=== PATIENT | female | born 1960 | race Caucasian/White ===

== ENCOUNTER 2017-06-05 15:51 | Inpatient (IN) | payer BC ==
[2017-06-05] MEDS ORDERED: ALBUTEROL SULFATE 0.083% NEB 2.5 MG/3 ML AMPUL NEB ONE (16:12)
--- NOTE | 2017-06-05 16:14 | ER Document Report ---
ED General - General Chief Complaint: Breathing Difficulty Stated Complaint: DIFFICULTY BREATHING Time Seen by Provider: 06/05/17 16:08 Notes: 57-year-old lady with COPD still smoking presents with gradual onset shortness of breath today with wheezing. She denies fever chills but is coughing. She used her inhalers this morning. She denies leg swelling or hemoptysis. She had a recent skin surgery on her left shoulder 3 days ago but denies chest pain pleuritic or otherwise. She was given steroids and [address] TRAVEL OUTSIDE OF THE [place] IN LAST 30 DAYS: No - Related Data Allergies/Adverse Reactions: levofloxacin [From [employer]] Adverse Reaction (Verified 06/24/15 11:57) redness to face Past Medical History - Social History Smoking Status: Current Every Day Smoker Smoking Education Provided: Yes - The patient ED visit today was directly related to their abuse of tobacco. Family History: Reviewed & Not Pertinent - Past Medical History Cardiac Medical History: Reports: Hx Congestive Heart Failure, Hx Coronary Artery Disease, Hx Hypertension Pulmonary Medical History: Reports: Hx Asthma, Hx COPD Neurological Medical History: Reports: Hx Cerebrovascular Accident GI Medical History: Reports: Hx Gastroesophageal Reflux Disease Musculoskeltal Medical History: Reports Hx Fibromyalgia Psychiatric Medical History: Reports: Hx Depression Past Surgical History: Reports: Hx Adenoidectomy, Hx Hysterectomy, Hx Tonsillectomy, Hx Vascular Surgery - Right-sided carotid endarterectomy - Immunizations Hx Pneumococcal Vaccination: 03/30/11 Review of Systems - Review of Systems Notes: REVIEW OF SYSTEMS GEN: Denies fever, chills, weight loss ENT: Denies sore throat, nasal discharge, ear pain EYES: Denies blurry vision, eye pain, discharge CV: Denies chest pain, palpitations, edema RESP: Wheezing coughing and shortness of breath GI: Denies abdominal pain, nausea, vomiting, diarrhea MSK: Denies joint pain/swelling, edema, SKIN: Denies rash, skin lesions LYMPH: Denies swollen glands/lymph nodes NEURO: Denies headache, focal weakness or numbness, dizziness PSYCH: Denies depression, suicidal or homicidal ideation PHYSICAL EXAMINATION General: Mild distress, well-nourished Head: Atraumatic, normocephalic ENT: Mouth normal, oropharynx moist, no exudates or tonsillar enlargement Eyes: Conjunctiva normal, pupils equal, lids normal Neck: No JVD, supple, no guarding CVS: Normal rate, regular rhythm, no murmurs Resp: Respiratory distress saturations in the 80s. Bilateral air movement with symmetric expiratory and expiratory wheezing. GI: Nondistended, soft, no tenderness to palpation, no rebound or guarding Ext: No deformities, no edema, normal range of motion in upper and lower ext Back: No CVA or midline TTP Skin: No rash, warm Lymphatic: No lymphadeopathy noted Neuro: Awake, alert. Face symmetric. GCS 15. Course - Re-evaluation Re-evalutation: 06/05/17 16:14 Patient presents with moderate to severe COPD exacerbation still wheezing hypoxic after therapy. Not quite at the level of BiPAP but needs continuous nebulizer. Doubt flu doubt pneumonia. Chest x-ray will be done to rule out pneumo mediastinum/pneumothorax the patient will be admitted. 06/05/17 16:38 Reexamined. More comfortable on nebulizer treatment. X-ray does not show pneumothorax or pneumonia. Discussed with Dr. Wray for admission. Critical Care Note - Critical Care Note Total time excluding time spent on procedures (mins): 31 Comments: The above patient is critically ill. Not including procedures, but including direct re-evaluations, speaking with patient and/or consultants, interpreting results, and documenting, I spent the total amount of minute listed listed above on critical care time Discharge - Discharge Clinical Impression: COPD with exacerbation Condition: Fair Disposition: ADMITTED INPATIENT Admitting Provider: Hospitalist Unit Admitted: Telemetry
--- NOTE | 2017-06-05 16:41 | RADIOLOGY REPORT (SQ) ---
EXAM DESCRIPTION: CHEST SINGLE VIEW COMPLETED DATE/TIME: 06/05/2017 4:21 pm REASON FOR STUDY: r/o PNA., copd pt with SOB COMPARISON: 06/24/2015. EXAM PARAMETERS: NUMBER OF VIEWS: One view. TECHNIQUE: Single frontal radiographic view of the chest acquired. RADIATION DOSE: NA LIMITATIONS: None. FINDINGS: LUNGS AND PLEURA: No opacities, masses or pneumothorax. No pleural effusion. MEDIASTINUM AND HILAR STRUCTURES: No masses. Contour normal. HEART AND VASCULAR STRUCTURES: Heart normal in size. Normal vasculature. BONES: No acute findings. HARDWARE: None in the chest. OTHER: No other significant finding. IMPRESSION: NO ACUTE RADIOGRAPHIC FINDING IN THE CHEST. TECHNICAL DOCUMENTATION: JOB ID: [id number] [employer]- All Rights Reserved Reading location - IP/workstation name: [email or web address]
[2017-06-05] MEDS ORDERED: ONDANSETRON HCL INJ/PF 4 MG/2 ML SDV IV PRN (17:07)
[2017-06-05] MEDS ORDERED: ACETAMINOPHEN 325 MG TABLET PO PRN (17:07)
--- NOTE | 2017-06-05 17:27 | PDOC H&P ---
History of Present Illness Admission Date/PCP: 06/05/17 16:54 Patient complains of: Shortness of breath History of Present Illness: KEELEY GALEANO is a 57 year old female presents to the hospital with complaint of shortness of breath for 2 days. Patient states this morning her breathing worsened. Patient states she does have productive cough which is clear. Patient reports that a few days ago she had a skin biopsy done and was placed on Keflex twice a day. Patient states she started antibiotics yesterday. Patient reports that she still is actively smoking. Past Medical History Cardiac Medical History: Reports: Congestive Heart Failure, Coronary Artery Disease, Hypertension Pulmonary Medical History: Reports: Asthma, Chronic Obstructive Pulmonary Disease (COPD) GI Medical History: Reports: Gastroesophageal Reflux Disease Musculoskeltal Medical History: Reports: Fibromyalgia Psychiatric Medical History: Reports: Depression Past Surgical History Past Surgical History: Reports: Adenoidectomy, Hysterectomy, Tonsillectomy, Vascular Surgery - Right-sided carotid endarterectomy Social History Smoking Status: Current Every Day Smoker Frequency of Alcohol Use: Rare Hx Recreational Drug Use: No Drugs: Marijuana Hx Prescription Drug Abuse: No - Advance Directive Resuscitation Status: Full Code Family History Family History: Reviewed & Not Pertinent Parental Family History Reviewed: Yes Children Family History Reviewed: Yes Sibling(s) Family History Reviewed.: Yes Medication/Allergy Home Medications: Alprazolam [Xanax] 1 mg PO TID 10/24/14 Atorvastatin Calcium [Lipitor] 40 mg PO QHS 10/24/14 Methocarbamol [Robaxin 750 mg Tablet] 750 mg PO QHS 10/24/14 Oxycodone HCl 15 mg PO QIDP PRN 10/24/14 Pregabalin [Lyrica] 150 mg PO BID 10/24/14 Trazodone HCl [Desyrel] 300 mg PO QHS 10/24/14 Zolpidem Tartrate [Ambien] 10 mg PO QHS 10/24/14 Albuterol Sulfate [Ventolin 0.083% Neb 2.5 mg/3 mL Ampul] 2.5 mg NEB RTQ4HP PRN #30 vial.neb 10/26/14 Fluticasone/Salmeterol [Advair 250-50 Diskus 28 dose] 1 inh IH Q12H #1 inhaler 10/26/14 Furosemide [Lasix 20 mg Tablet] 20 mg PO QAM PRN #30 tablet 10/26/14 Albuterol Sulfate [Ventolin Hfa] 2 puff IH Q4HP PRN 06/11/15 Citalopram Hydrobromide [Celexa] 20 mg PO DAILY 06/11/15 Allergies/Adverse Reactions: levofloxacin [From Levaquin] Adverse Reaction (Verified 06/24/15 11:57) redness to face Review of Systems Constitutional: PRESENT: fatigue, weakness Eyes: ABSENT: visual disturbances Ears: ABSENT: hearing changes Cardiovascular: ABSENT: chest pain, dyspnea on exertion, edema, orthropnea, palpitations Respiratory: PRESENT: cough, dyspnea, sputum Gastrointestinal: ABSENT: abdominal pain, constipation, diarrhea, hematemesis, hematochezia, nausea, vomiting Genitourinary: ABSENT: dysuria, hematuria Musculoskeletal: ABSENT: joint swelling Integumentary: ABSENT: rash, wounds Neurological: ABSENT: abnormal gait, abnormal speech, confusion, dizziness, focal weakness, syncope Psychiatric: ABSENT: anxiety, depression, homidical ideation, suicidal ideation Endocrine: ABSENT: cold intolerance, heat intolerance, polydipsia, polyuria Hematologic/Lymphatic: ABSENT: easy bleeding, easy bruising Physical Exam Vital Signs: Temp Pulse Resp BP Pulse Ox 20 06/05/17 16:00 General appearance: PRESENT: mild distress, well-developed, well-nourished Head exam: PRESENT: atraumatic, normocephalic Eye exam: PRESENT: conjunctiva pink, EOMI. ABSENT: scleral icterus Ear exam: PRESENT: normal external ear exam Mouth exam: PRESENT: moist, tongue midline Neck exam: ABSENT: carotid bruit, JVD, lymphadenopathy, thyromegaly Respiratory exam: PRESENT: accessory muscle use, decreased breath sounds, prolonged expiratory phas, wheezes Cardiovascular exam: PRESENT: RRR. ABSENT: diastolic murmur, rubs, systolic murmur Pulses: PRESENT: normal dorsalis pedis pul Vascular exam: PRESENT: normal capillary refill GI/Abdominal exam: PRESENT: normal bowel sounds, soft. ABSENT: distended, guarding, mass, organolmegaly, rebound, tenderness Rectal exam: PRESENT: deferred Extremities exam: PRESENT: full ROM. ABSENT: calf tenderness, clubbing, pedal edema Musculoskeletal exam: PRESENT: full ROM Neurological exam: PRESENT: alert, awake, oriented to person, oriented to place , oriented to time, oriented to situation, CN II-XII grossly intact. ABSENT: motor sensory deficit Psychiatric exam: PRESENT: appropriate affect, normal mood. ABSENT: homicidal ideation, suicidal ideation Skin exam: PRESENT: dry, intact, warm. ABSENT: cyanosis, rash Results Impressions: Chest X-Ray 06/05/17 16:08 IMPRESSION: NO ACUTE RADIOGRAPHIC FINDING IN THE CHEST. Assessment & Plan - Diagnosis (1) Acute respiratory failure with hypoxia Is this a current diagnosis for this admission?: Yes Plan: Secondary to COPD exacerbation: We will place patient on breathing treatments every 4 hours, steroids, and Augmentin. (2) COPD with exacerbation Is this a current diagnosis for this admission?: Yes Plan: We will continue patient on steroids, antibiotics, and DuoNeb (3) Hyperlipidemia Is this a current diagnosis for this admission?: Yes Plan: Will check lipid profile. (4) Diastolic CHF Qualifiers: Heart failure chronicity: chronic Qualified Code(s): I50.32 - Chronic diastolic (congestive) heart failure Is this a current diagnosis for this admission?: No Plan: We will continue to monitor patient closely. Will not place patient on IV fluids. (5) DVT prophylaxis Is this a current diagnosis for this admission?: Yes Plan: SCDs - Time Time Spent: 30 to 50 Minutes
[2017-06-05] MEDS ORDERED: NICOTINE 21 MG/24 HR PATCH.TD24 TD ONE (18:00)
[2017-06-05] MEDS ORDERED: AMOXICILLIN TR/POT CLAVULANATE 500-125 MG TAB PO ONE (18:00)
[2017-06-05 18:17] LABS: APPEARANCE,URINE CLEAR; BILIRUBIN,URINE NEGATIVE (NEGATIVE); COLOR,URINE STRAW; GLUCOSE, URINE NEGATIVE (NEGATIVE); KETONES,URINE NEGATIVE (NEGATIVE); LEUKOCYTE ESTERASE,URINE NEGATIVE (NEGATIVE); NITRITE,URINE NEGATIVE (NEGATIVE); PROTEIN,URINE NEGATIVE (NEGATIVE); URINE SPECIFIC GRAVITY 1.006; UROBILINOGEN,URINE NEGATIVE mg/dL (<2.0)
[2017-06-05 18:41] LABS: HEMATOCRIT 40.6 % (36.0-47.0); HEMOGLOBIN 13.6 g/dL (12.0-15.5); MEAN CORPUSCULAR HEMOGLOBIN 29.7 pg (27.0-33.4); MEAN CORPUSCULAR HGB CONC 33.4 g/dL (32.0-36.0); MEAN CORPUSCULAR VOLUME 89 fl (80-97); PLATELET COUNT 177 10^3/uL (150-450); RED BLOOD COUNT 4.57 10^6/uL (3.72-5.28); RED CELL DISTRIBUTION WIDTH 13.4 % (11.5-14.0)
[2017-06-05 19:05] LABS: ANION GAP 8 (5-19); BLOOD UREA NITROGEN 11 mg/dL (7-20); CARBON DIOXIDE 28 mmol/L (22-30); CHLORIDE 101 mmol/L (98-107); GLUCOSE 128 mg/dL (75-110); POTASSIUM 4.5 mmol/L (3.6-5.0); SODIUM 137.3 mmol/L (137-145)
[2017-06-05] MEDS: IPRATROPIUM/ALBUTEROL 0.5-2.5 MG/3 ML AMPUL NEB SCH ×2 (20:04→23:44)
--- NOTE | 2017-06-05 21:08 | EKG REPORT ---
SEVERITY:- ABNORMAL ECG - SINUS TACHYCARDIA LEFT ATRIAL ABNORMALITY : Confirmed by: Isabela Stein 05-Jun-2017 21:07:39
[2017-06-05] MEDS: AMOXICILLIN TR/POT CLAVULANATE 500-125 MG TAB PO SCH (22:09)
[2017-06-05] MEDS: METHYLPREDNISOLONE INJ 125 MG/2 ML SDV IV SCH (22:09)
[2017-06-05 23:00] LABS: ARTERIAL BLOOD BASE EXCESS 2.7 mmol/L; ARTERIAL BLOOD FIO2 3L; ARTERIAL BLOOD H2CO3 1.38 mmol/L (1.05-1.35); ARTERIAL BLOOD O2 SATURATION 90.1 % (94-98); ARTERIAL BLOOD PO2 58.1 mmHg (80-100); ARTERIAL BLOOD TOTAL CO2 29.5 mmol/L (21-25)
[2017-06-06] MEDS ORDERED: METHOCARBAMOL 750 MG TABLET PO ONE (01:45)
[2017-06-06] MEDS ORDERED: PREGABALIN 75 MG CAPSULE PO ONE (01:45)
[2017-06-06] MEDS ORDERED: ALPRAZOLAM 0.5 MG TABLET PO ONE ×2 (01:45→20:15)
[2017-06-06] MEDS ORDERED: ATORVASTATIN CALCIUM 40 MG TABLET PO ONE (01:45)
[2017-06-06] MEDS: OXYCODONE HCL IR 5 MG TABLET PO PRN ×3 (01:48→21:28)
[2017-06-06] MEDS ORDERED: TRAZODONE HCL 50 MG TABLET PO ONE (02:00)
[2017-06-06] MEDS: IPRATROPIUM/ALBUTEROL 0.5-2.5 MG/3 ML AMPUL NEB SCH ×5 (03:46→19:48)
[2017-06-06 05:15] LABS: ABSOLUTE LYMPHOCYTES (AUTO) 0.6 10^3/uL (0.5-4.7); ABSOLUTE MONOCYTES (AUTO) 0.1 10^3/uL (0.1-1.4); ABSOLUTE NEUT (AUTO) 4.7 10^3/uL (1.7-8.2); BASOPHILS % (AUTO) 0.3 % (0-2); HEMATOCRIT 38.2 % (36.0-47.0); HEMOGLOBIN 12.6 g/dL (12.0-15.5); LYMPHOCYTES % (AUTO) 10.4 % (13-45); MEAN CORPUSCULAR HEMOGLOBIN 29.5 pg (27.0-33.4); MEAN CORPUSCULAR VOLUME 89 fl (80-97); MONOCYTES % (AUTO) 2.6 % (3-13); PLATELET COUNT 178 10^3/uL (150-450); RED BLOOD COUNT 4.27 10^6/uL (3.72-5.28); RED CELL DISTRIBUTION WIDTH 13.8 % (11.5-14.0); SEGMENTED NEUTROPHILS % (AUTO) 86.7 % (42-78); TOTAL CELLS COUNTED % (AUTO) 100 %; WHITE BLOOD COUNT 5.4 10^3/uL (4.0-10.5)
[2017-06-06] MEDS: AMOXICILLIN TR/POT CLAVULANATE 500-125 MG TAB PO SCH ×3 (05:38→21:20)
[2017-06-06] MEDS: LANSOPRAZOLE 30 MG TAB.RAP.DR PO SCH (05:38)
[2017-06-06] MEDS: METHYLPREDNISOLONE INJ 125 MG/2 ML SDV IV SCH ×3 (05:38→22:58)
[2017-06-06 05:46] LABS: ALANINE AMINOTRANSFERASE 36 U/L (9-52); ALBUMIN 4.3 g/dL (3.5-5.0); ALKALINE PHOSPHATASE 81 U/L (38-126); ANION GAP 10 (5-19); ASPARTATE AMINO TRANSFERASE 36 U/L (14-36); BILIRUBIN,DIRECT 0.2 mg/dL (0.0-0.4); BILIRUBIN,TOTAL 0.2 mg/dL (0.2-1.3); BLOOD UREA NITROGEN 15 mg/dL (7-20); CALCIUM 9.7 mg/dL (8.4-10.2); CARBON DIOXIDE 28 mmol/L (22-30); CHLORIDE 98 mmol/L (98-107); GLUCOSE 150 mg/dL (75-110); POTASSIUM 4.9 mmol/L (3.6-5.0); SODIUM 136.2 mmol/L (137-145); TOTAL PROTEIN 6.6 g/dL (6.3-8.2)
[2017-06-06] MEDS: ALPRAZOLAM 0.5 MG TABLET PO SCH ×2 (07:32→22:59)
[2017-06-06] MEDS: NICOTINE 21 MG/24 HR PATCH.TD24 TD SCH (10:01)
[2017-06-06] MEDS: CITALOPRAM HYDROBROMIDE 20 MG TABLET PO SCH (10:01)
[2017-06-06] MEDS: METHOCARBAMOL 750 MG TABLET PO SCH ×2 (10:01→21:28)
[2017-06-06] MEDS: PREGABALIN 75 MG CAPSULE PO SCH ×2 (10:02→21:20)
--- NOTE | 2017-06-06 15:22 | PDOC PROGRESS REPORT ---
Subjective Progress Note for:: 06/06/17 Subjective:: Pt seen earlier this morning. Pt states that she is feeling better. Pt states that she is not having is hard time breathing today. Reason For Visit: COPD W EXACERBATION Physical Exam Vital Signs: Temp Pulse Resp BP Pulse Ox 98.3 F 105 H 20 121/64 87 L 06/06/17 13:06 06/06/17 14:00 06/06/17 13:06 06/06/17 13:06 06/06/17 13:06 Intake & Output 06/05/17 06/06/17 06/07/17 06:59 06:59 07:59 Intake Total 450 337 Output Total 300 300 Balance 150 37 Weight 77.2 kg General appearance: PRESENT: no acute distress, well-developed, well-nourished Head exam: PRESENT: atraumatic, normocephalic Eye exam: PRESENT: conjunctiva pink, EOMI. ABSENT: scleral icterus Ear exam: PRESENT: normal external ear exam Mouth exam: PRESENT: moist, tongue midline Neck exam: ABSENT: carotid bruit, JVD, lymphadenopathy, thyromegaly Respiratory exam: PRESENT: accessory muscle use, decreased breath sounds, prolonged expiratory phas, wheezes Cardiovascular exam: PRESENT: RRR. ABSENT: diastolic murmur, rubs, systolic murmur Pulses: PRESENT: normal dorsalis pedis pul Vascular exam: PRESENT: normal capillary refill GI/Abdominal exam: PRESENT: normal bowel sounds, soft. ABSENT: distended, guarding, mass, organolmegaly, rebound, tenderness Rectal exam: PRESENT: deferred Extremities exam: PRESENT: full ROM. ABSENT: calf tenderness, clubbing, pedal edema Musculoskeletal exam: PRESENT: full ROM Neurological exam: PRESENT: alert, awake, oriented to person, oriented to place , oriented to time, oriented to situation, CN II-XII grossly intact. ABSENT: motor sensory deficit Psychiatric exam: PRESENT: appropriate affect, normal mood. ABSENT: homicidal ideation, suicidal ideation Skin exam: PRESENT: dry, intact, warm. ABSENT: cyanosis, rash Results Laboratory Results: 06/06/17 03:44 06/06/17 03:44 06/05/17 06/05/17 06/05/17 17:40 17:40 18:27 WBC 7.0 RBC 4.57 Hgb 13.6 Hct 40.6 MCV 89 MCH 29.7 MCHC 33.4 RDW 13.4 Plt Count 177 Seg Neutrophils % Lymphocytes % Monocytes % Eosinophils % Basophils % Absolute Neutrophils Absolute Lymphocytes Absolute Monocytes Absolute Eosinophils Absolute Basophils Carbonic Acid 1.38 H HCO3/H2CO3 Ratio 20:1 ABG pH 7.40 ABG pCO2 46.0 H ABG pO2 58.1 L ABG HCO3 28.0 H ABG O2 Saturation 90.1 L ABG Base Excess 2.7 FiO2 3L Sodium Potassium Chloride Carbon Dioxide Anion Gap BUN Creatinine Est GFR ( Amer) Est GFR (Non-Af Amer) Glucose Calcium Magnesium Total Bilirubin AST ALT Alkaline Phosphatase Total Protein Albumin Urine Color STRAW Urine Appearance CLEAR Urine pH 6.0 Ur Specific [place] 1.006 Urine Protein NEGATIVE Urine Glucose (UA) NEGATIVE Urine Ketones NEGATIVE Urine Blood SMALL H Urine Nitrite NEGATIVE Ur Leukocyte Esterase NEGATIVE Urine WBC (Auto) 0 Urine RBC (Auto) 1 06/05/17 06/06/17 06/06/17 18:27 03:44 03:44 WBC 5.4 RBC 4.27 Hgb 12.6 Hct 38.2 MCV 89 MCH 29.5 MCHC 33.0 RDW 13.8 Plt Count 178 Seg Neutrophils % 86.7 H Lymphocytes % 10.4 L Monocytes % 2.6 L Eosinophils % 0.0 Basophils % 0.3 Absolute Neutrophils 4.7 Absolute Lymphocytes 0.6 Absolute Monocytes 0.1 Absolute Eosinophils 0.0 Absolute Basophils 0.0 Carbonic Acid HCO3/H2CO3 Ratio ABG pH ABG pCO2 ABG pO2 ABG HCO3 ABG O2 Saturation ABG Base Excess FiO2 Sodium 137.3 136.2 L Potassium 4.5 4.9 Chloride 101 98 Carbon Dioxide 28 28 Anion Gap 8 10 BUN 11 15 Creatinine 0.62 0.56 Est GFR ( Amer) > 60 > 60 Est GFR (Non-Af Amer) > 60 > 60 Glucose 128 H 150 H Calcium 10.0 9.7 Magnesium 2.2 Total Bilirubin 0.2 AST 36 ALT 36 Alkaline Phosphatase 81 Total Protein 6.6 Albumin 4.3 Urine Color Urine Appearance Urine pH Ur Specific [place] Urine Protein Urine Glucose (UA) Urine Ketones Urine Blood Urine Nitrite Ur Leukocyte Esterase Urine WBC (Auto) Urine RBC (Auto) 06/06/17 02:00 Sputum Gram Stain - Final 06/06/17 02:00 Sputum Sputum Culture - Final Impressions: Chest X-Ray 06/05/17 16:08 IMPRESSION: NO ACUTE RADIOGRAPHIC FINDING IN THE CHEST. Assessment & Plan - Diagnosis (1) Acute respiratory failure with hypoxia Is this a current diagnosis for this admission?: Yes Plan: Secondary to COPD exacerbation: We will continue breathing treatments, steroids , and antibiotics. Patient is also using BiPAP. Since BiPAP settings were adjusted later in the morning and will order for ABG now. (2) COPD with exacerbation Is this a current diagnosis for this admission?: Yes Plan: We will continue patient on steroids, antibiotics, and DuoNeb. Will continue BIPAP. Will check ABG. (3) Hyperlipidemia Is this a current diagnosis for this admission?: Yes Plan: Will continue statin. (4) Diastolic CHF Qualifiers: Heart failure chronicity: chronic Qualified Code(s): I50.32 - Chronic diastolic (congestive) heart failure Is this a current diagnosis for this admission?: No Plan: Euvolemic: We will continue to monitor patient closely. Will not place patient on IV fluids. (5) DVT prophylaxis Is this a current diagnosis for this admission?: Yes Plan: SCDs - Time Time Spent with patient: 15-24 minutes
[2017-06-06 16:29] LABS: ARTERIAL BLOOD BASE EXCESS 4.1 mmol/L; ARTERIAL BLOOD FIO2 6L; ARTERIAL BLOOD H2CO3 1.33 mmol/L (1.05-1.35); ARTERIAL BLOOD HCO3 28.9 mmol/L (20-26); ARTERIAL BLOOD O2 SATURATION 97.5 % (94-98); ARTERIAL BLOOD PCO2 44.2 mmHg (35-45); ARTERIAL BLOOD PH 7.43 (7.35-7.45); ARTERIAL BLOOD TOTAL CO2 30.3 mmol/L (21-25)
[2017-06-06] MEDS: MAGNESIUM SULFATE 1 GM/D5W 100 ML IV SCH ×2 (20:10→21:19)
[2017-06-06] MEDS: TRAZODONE HCL 50 MG TABLET PO SCH (21:19)
[2017-06-06] MEDS: ATORVASTATIN CALCIUM 40 MG TABLET PO SCH (21:20)
[2017-06-07] MEDS: IPRATROPIUM/ALBUTEROL 0.5-2.5 MG/3 ML AMPUL NEB SCH ×6 (00:03→20:35)
[2017-06-07] MEDS: OXYCODONE HCL IR 5 MG TABLET PO PRN ×3 (04:16→19:50)
[2017-06-07 04:51] LABS: HEMATOCRIT 38.4 % (36.0-47.0); HEMOGLOBIN 12.9 g/dL (12.0-15.5); MEAN CORPUSCULAR HEMOGLOBIN 29.9 pg (27.0-33.4); MEAN CORPUSCULAR HGB CONC 33.7 g/dL (32.0-36.0); MEAN CORPUSCULAR VOLUME 89 fl (80-97); PLATELET COUNT 186 10^3/uL (150-450); RED BLOOD COUNT 4.34 10^6/uL (3.72-5.28)
[2017-06-07 05:11] LABS: ALANINE AMINOTRANSFERASE 46 U/L (9-52); ALBUMIN 4.2 g/dL (3.5-5.0); ALKALINE PHOSPHATASE 73 U/L (38-126); ANION GAP 7 (5-19); ASPARTATE AMINO TRANSFERASE 53 U/L (14-36); BILIRUBIN,DIRECT 0.3 mg/dL (0.0-0.4); BILIRUBIN,TOTAL 0.3 mg/dL (0.2-1.3); BLOOD UREA NITROGEN 17 mg/dL (7-20); CALCIUM 9.3 mg/dL (8.4-10.2); CARBON DIOXIDE 30 mmol/L (22-30); CHLORIDE 101 mmol/L (98-107); GLUCOSE 126 mg/dL (75-110); POTASSIUM 5.1 mmol/L (3.6-5.0); SODIUM 137.8 mmol/L (137-145); TOTAL PROTEIN 6.9 g/dL (6.3-8.2)
[2017-06-07 05:22] LABS: ABSOLUTE LYMPHOCYTES# (MANUAL) 0.8 10^3/uL (0.5-4.7); ABSOLUTE NEUTROPHILS# (MANUAL) 17.3 10^3/uL (1.7-8.2); BASOPHILS % (MANUAL) 0 % (0-2); EOSINOPHILS % (MANUAL) 0 % (0-6); LYMPHOCYTES % (MANUAL) 4 % (13-45); MONOCYTES % (MANUAL) 5 % (3-13); SEGMENTED NEUTROPHILS % (MAN) 91 % (42-78); TOTAL CELLS COUNTED 100
[2017-06-07 05:23] LABS: PLATELET COMMENT ADEQUATE; RBC MORPHOLOGY COMMENT NORMO-CYTIC/CHROMIC
[2017-06-07] MEDS: METHYLPREDNISOLONE INJ 125 MG/2 ML SDV IV SCH ×3 (05:23→22:25)
[2017-06-07] MEDS: LANSOPRAZOLE 30 MG TAB.RAP.DR PO SCH (05:23)
[2017-06-07] MEDS: AMOXICILLIN TR/POT CLAVULANATE 500-125 MG TAB PO SCH ×3 (05:23→22:25)
[2017-06-07] MEDS: ALPRAZOLAM 0.5 MG TABLET PO SCH ×2 (08:18→22:25)
[2017-06-07] MEDS: CITALOPRAM HYDROBROMIDE 20 MG TABLET PO SCH (10:51)
[2017-06-07] MEDS: PREGABALIN 75 MG CAPSULE PO SCH ×2 (10:51→22:25)
[2017-06-07] MEDS: NICOTINE 21 MG/24 HR PATCH.TD24 TD SCH (10:51)
[2017-06-07] MEDS: METHOCARBAMOL 750 MG TABLET PO SCH ×2 (10:51→22:26)
[2017-06-07 11:00] LABS: ARTERIAL BLOOD H2CO3 1.49 mmol/L (1.05-1.35); ARTERIAL BLOOD O2 SATURATION 98.4 % (94-98); ARTERIAL BLOOD PCO2 49.5 mmHg (35-45); ARTERIAL BLOOD PH 7.37 (7.35-7.45); ARTERIAL BLOOD PO2 125.9 mmHg (80-100); ARTERIAL BLOOD TOTAL CO2 29.6 mmol/L (21-25)
[2017-06-07 11:05] LABS: ARTERIAL BLOOD FIO2 50%
--- NOTE | 2017-06-07 15:17 | PDOC PROGRESS REPORT ---
Subjective Progress Note for:: 06/07/17 Subjective:: Seen earlier this morning complaining that she was having difficulty breathing. Patient stated that she wanted more benzos which will help her breathe better. Explained to patient that given her benzos or morphine while experiencing severe respiratory distress would most likely make her condition worse. Patient states that she feels as though she needs something more to help her stay calm when she is feeling this short of breath. Later on revisit patient in room with BiPAP in place and she was removed I am asked to talk on the cell phone with her family member. Reason For Visit: COPD W EXACERBATION Physical Exam Vital Signs: Temp Pulse Resp BP Pulse Ox 97.4 F 89 21 H 120/67 99 06/07/17 12:00 06/07/17 14:00 06/07/17 12:00 06/07/17 12:00 06/07/17 12:00 Intake & Output 06/06/17 06/07/17 06/08/17 05:59 06:59 06:59 Intake Total Output Total Balance Weight General appearance: PRESENT: no acute distress, well-developed, well-nourished Head exam: PRESENT: atraumatic, normocephalic Eye exam: PRESENT: conjunctiva pink, EOMI. ABSENT: scleral icterus Ear exam: PRESENT: normal external ear exam Mouth exam: PRESENT: moist, tongue midline Neck exam: ABSENT: carotid bruit, JVD, lymphadenopathy, thyromegaly Respiratory exam: PRESENT: accessory muscle use, prolonged expiratory phas, wheezes Cardiovascular exam: PRESENT: RRR. ABSENT: diastolic murmur, rubs, systolic murmur Pulses: PRESENT: normal dorsalis pedis pul Vascular exam: PRESENT: normal capillary refill GI/Abdominal exam: PRESENT: normal bowel sounds, soft. ABSENT: distended, guarding, mass, organolmegaly, rebound, tenderness Rectal exam: PRESENT: deferred Extremities exam: PRESENT: full ROM. ABSENT: calf tenderness, clubbing, pedal edema Musculoskeletal exam: PRESENT: full ROM Neurological exam: PRESENT: alert, awake, oriented to person, oriented to place , oriented to time, oriented to situation, CN II-XII grossly intact. ABSENT: motor sensory deficit Psychiatric exam: PRESENT: agitated, normal mood. ABSENT: homicidal ideation, suicidal ideation Skin exam: PRESENT: dry, intact, warm. ABSENT: cyanosis, rash Results Laboratory Results: 06/07/17 03:30 06/07/17 03:30 06/06/17 06/07/17 06/07/17 14:15 03:30 03:30 WBC 19.0 H D RBC 4.34 Hgb 12.9 Hct 38.4 MCV 89 MCH 29.9 MCHC 33.7 RDW 14.0 Plt Count 186 Seg Neutrophils % Not Reportable Lymphocytes % Not Reportable Monocytes % Not Reportable Eosinophils % Not Reportable Basophils % Not Reportable Absolute Neutrophils Not Reportable Absolute Lymphocytes Not Reportable Absolute Monocytes Not Reportable Absolute Eosinophils Not Reportable Absolute Basophils Not Reportable Carbonic Acid 1.33 HCO3/H2CO3 Ratio 21:1 ABG pH 7.43 ABG pCO2 44.2 ABG pO2 96.0 ABG HCO3 28.9 H ABG O2 Saturation 97.5 ABG Base Excess 4.1 FiO2 6L Sodium 137.8 Potassium 5.1 H Chloride 101 Carbon Dioxide 30 Anion Gap 7 BUN 17 Creatinine 0.56 Est GFR ( Amer) > 60 Est GFR (Non-Af Amer) > 60 Glucose 126 H Calcium 9.3 Magnesium 2.8 H Total Bilirubin 0.3 AST 53 H ALT 46 Alkaline Phosphatase 73 Total Protein 6.9 Albumin 4.2 06/07/17 10:30 WBC RBC Hgb Hct MCV MCH MCHC RDW Plt Count Seg Neutrophils % Lymphocytes % Monocytes % Eosinophils % Basophils % Absolute Neutrophils Absolute Lymphocytes Absolute Monocytes Absolute Eosinophils Absolute Basophils Carbonic Acid 1.49 H HCO3/H2CO3 Ratio 18:1 ABG pH 7.37 ABG pCO2 49.5 H ABG pO2 125.9 H ABG HCO3 28.0 H ABG O2 Saturation 98.4 H ABG Base Excess 2.0 FiO2 50% Sodium Potassium Chloride Carbon Dioxide Anion Gap BUN Creatinine Est GFR ( Amer) Est GFR (Non-Af Amer) Glucose Calcium Magnesium Total Bilirubin AST ALT Alkaline Phosphatase Total Protein Albumin 06/06/17 02:00 Sputum Gram Stain - Final 06/06/17 02:00 Sputum Sputum Culture - Final Impressions: Chest X-Ray 06/05/17 16:08 IMPRESSION: NO ACUTE RADIOGRAPHIC FINDING IN THE CHEST. Assessment & Plan - Diagnosis (1) Acute respiratory failure with hypoxia Is this a current diagnosis for this admission?: Yes Plan: Secondary to COPD exacerbation: We will continue breathing treatments, steroids , and antibiotics. Patient is using BiPAP. Patient's settings were adjusted yesterday. Will decrease FI02 to 30%. (2) COPD with exacerbation Is this a current diagnosis for this admission?: Yes Plan: We will continue patient on steroids, antibiotics, and DuoNeb. Will continue BIPAP. Patient encouraged to discontinue tobacco abuse was discharged home from hospital. (3) Hyperlipidemia Is this a current diagnosis for this admission?: Yes Plan: Will continue statin. (4) Diastolic CHF Qualifiers: Heart failure chronicity: chronic Qualified Code(s): I50.32 - Chronic diastolic (congestive) heart failure Is this a current diagnosis for this admission?: No Plan: Euvolemic: We will continue to monitor patient closely. Will not place patient on IV fluids. (5) DVT prophylaxis Is this a current diagnosis for this admission?: Yes Plan: SCDs - Time Time Spent with patient: 15-24 minutes
[2017-06-07] MEDS: BENZONATATE 100 MG CAPSULE PO PRN (19:50)
[2017-06-07] MEDS: TRAZODONE HCL 50 MG TABLET PO SCH (22:25)
[2017-06-07] MEDS: ATORVASTATIN CALCIUM 40 MG TABLET PO SCH (22:25)
[2017-06-08] MEDS: IPRATROPIUM/ALBUTEROL 0.5-2.5 MG/3 ML AMPUL NEB SCH ×7 (00:14→23:52)
[2017-06-08 04:27] LABS: ABSOLUTE LYMPHOCYTES (AUTO) 1.5 10^3/uL (0.5-4.7); ABSOLUTE MONOCYTES (AUTO) 1.6 10^3/uL (0.1-1.4); ABSOLUTE NEUT (AUTO) 13.4 10^3/uL (1.7-8.2); HEMATOCRIT 38.6 % (36.0-47.0); HEMOGLOBIN 12.9 g/dL (12.0-15.5); MEAN CORPUSCULAR HEMOGLOBIN 29.8 pg (27.0-33.4); MEAN CORPUSCULAR HGB CONC 33.3 g/dL (32.0-36.0); MEAN CORPUSCULAR VOLUME 89 fl (80-97); MONOCYTES % (AUTO) 9.9 % (3-13); PLATELET COUNT 193 10^3/uL (150-450); RED BLOOD COUNT 4.32 10^6/uL (3.72-5.28); SEGMENTED NEUTROPHILS % (AUTO) 81.1 % (42-78); TOTAL CELLS COUNTED % (AUTO) 100 %; WHITE BLOOD COUNT 16.6 10^3/uL (4.0-10.5)
[2017-06-08] MEDS: BENZONATATE 100 MG CAPSULE PO PRN (04:31)
[2017-06-08] MEDS: OXYCODONE HCL IR 5 MG TABLET PO PRN ×3 (04:32→16:18)
[2017-06-08 04:59] LABS: ALANINE AMINOTRANSFERASE 48 U/L (9-52); ALBUMIN 3.8 g/dL (3.5-5.0); ALKALINE PHOSPHATASE 69 U/L (38-126); ANION GAP 6 (5-19); ASPARTATE AMINO TRANSFERASE 61 U/L (14-36); BILIRUBIN,DIRECT 0.3 mg/dL (0.0-0.4); BILIRUBIN,TOTAL 0.3 mg/dL (0.2-1.3); BLOOD UREA NITROGEN 17 mg/dL (7-20); CALCIUM 9.3 mg/dL (8.4-10.2); CARBON DIOXIDE 31 mmol/L (22-30); CHLORIDE 101 mmol/L (98-107); GLUCOSE 90 mg/dL (75-110); SODIUM 138.3 mmol/L (137-145); TOTAL PROTEIN 6.8 g/dL (6.3-8.2)
[2017-06-08] MEDS: AMOXICILLIN TR/POT CLAVULANATE 500-125 MG TAB PO SCH ×3 (05:21→21:31)
[2017-06-08] MEDS: LANSOPRAZOLE 30 MG TAB.RAP.DR PO SCH (05:22)
[2017-06-08] MEDS: METHYLPREDNISOLONE INJ 125 MG/2 ML SDV IV SCH ×3 (05:22→21:32)
[2017-06-08] MEDS: ALPRAZOLAM 0.5 MG TABLET PO SCH ×2 (07:50→21:31)
[2017-06-08] MEDS: CITALOPRAM HYDROBROMIDE 20 MG TABLET PO SCH (10:13)
[2017-06-08] MEDS: METHOCARBAMOL 750 MG TABLET PO SCH ×2 (10:14→21:31)
[2017-06-08] MEDS: PREGABALIN 75 MG CAPSULE PO SCH ×2 (10:14→21:31)
[2017-06-08] MEDS: NICOTINE 21 MG/24 HR PATCH.TD24 TD SCH (10:18)
--- NOTE | 2017-06-08 18:04 | PDOC PROGRESS REPORT ---
Subjective Progress Note for:: 06/08/17 Subjective:: Pt states that her anxiety is severe. Pt states that she sometimes takes an additional ativan at home but not normally. Nursing states that pt has been using her BIPAP. Reason For Visit: COPD W EXACERBATION Physical Exam Vital Signs: Temp Pulse Resp BP Pulse Ox 97.6 F 91 16 144/85 H 98 06/08/17 15:45 06/08/17 15:47 06/08/17 15:47 06/08/17 15:45 06/08/17 15:47 Intake & Output 06/07/17 06/08/17 06/09/17 06:59 06:59 06:59 Intake Total 1767 Output Total 800 Balance 967 Weight 80.9 kg General appearance: PRESENT: no acute distress, well-developed, well-nourished Head exam: PRESENT: atraumatic, normocephalic Eye exam: PRESENT: conjunctiva pink, EOMI. ABSENT: scleral icterus Ear exam: PRESENT: normal external ear exam Mouth exam: PRESENT: moist, tongue midline Neck exam: ABSENT: carotid bruit, JVD, lymphadenopathy, thyromegaly Respiratory exam: PRESENT: accessory muscle use, decreased breath sounds, prolonged expiratory phas, wheezes. ABSENT: rales, rhonchi Cardiovascular exam: PRESENT: RRR. ABSENT: diastolic murmur, rubs, systolic murmur Pulses: PRESENT: normal dorsalis pedis pul Vascular exam: PRESENT: normal capillary refill GI/Abdominal exam: PRESENT: normal bowel sounds, soft. ABSENT: distended, guarding, mass, organolmegaly, rebound, tenderness Rectal exam: PRESENT: deferred Extremities exam: PRESENT: full ROM. ABSENT: calf tenderness, clubbing, pedal edema Neurological exam: PRESENT: alert, awake, oriented to person, oriented to place , oriented to time, oriented to situation, CN II-XII grossly intact. ABSENT: motor sensory deficit Psychiatric exam: PRESENT: appropriate affect, normal mood. ABSENT: homicidal ideation, suicidal ideation Skin exam: PRESENT: dry, intact, warm. ABSENT: cyanosis, rash Results Laboratory Results: 06/08/17 03:33 06/08/17 03:33 06/08/17 06/08/17 03:33 03:33 WBC 16.6 H RBC 4.32 Hgb 12.9 Hct 38.6 MCV 89 MCH 29.8 MCHC 33.3 RDW 14.0 Plt Count 193 Seg Neutrophils % 81.1 H Lymphocytes % 9.0 L Monocytes % 9.9 Eosinophils % 0.0 Basophils % 0.0 Absolute Neutrophils 13.4 H Absolute Lymphocytes 1.5 Absolute Monocytes 1.6 H Absolute Eosinophils 0.0 Absolute Basophils 0.0 Sodium 138.3 Potassium 5.0 Chloride 101 Carbon Dioxide 31 H Anion Gap 6 BUN 17 Creatinine 0.59 Est GFR ( Amer) > 60 Est GFR (Non-Af Amer) > 60 Glucose 90 Calcium 9.3 Magnesium 2.4 H Total Bilirubin 0.3 AST 61 H ALT 48 Alkaline Phosphatase 69 Total Protein 6.8 Albumin 3.8 Impressions: Chest X-Ray 06/05/17 16:08 IMPRESSION: NO ACUTE RADIOGRAPHIC FINDING IN THE CHEST. Assessment & Plan - Diagnosis (1) Acute respiratory failure with hypoxia Is this a current diagnosis for this admission?: Yes Plan: Secondary to COPD exacerbation: We will continue breathing treatments, steroids , and antibiotics. Patient is using BiPAP. Will obtain CTA of chest to evaluate for PE. (2) COPD with exacerbation Is this a current diagnosis for this admission?: Yes Plan: We will continue patient on steroids, antibiotics, and DuoNeb. Will continue BIPAP. Will check CTA of chest to evaluate for PE. (3) Hyperlipidemia Is this a current diagnosis for this admission?: Yes Plan: Will continue statin. (4) Diastolic CHF Qualifiers: Heart failure chronicity: chronic Qualified Code(s): I50.32 - Chronic diastolic (congestive) heart failure Is this a current diagnosis for this admission?: No Plan: Euvolemic: We will continue to monitor patient closely. Will not place patient on IV fluids. (5) Anxiety Is this a current diagnosis for this admission?: Yes Plan: Pt's ativan has been adjusted. (6) Leukocytosis Is this a current diagnosis for this admission?: Yes Plan: Secondary to Steroids: Will continue to monitor. (7) DVT prophylaxis Is this a current diagnosis for this admission?: Yes Plan: SCDs - Time Time Spent with patient: 15-24 minutes
[2017-06-08] MEDS ORDERED: LIDOCAINE 1% INJ-PF (10 MG/ML) 30 ML SDV ONE (20:15)
[2017-06-08] MEDS ORDERED: LIDOCAINE 0.5% INJ-PF (5 MG/ML) 50 ML SDV ONE (20:15)
[2017-06-08] MEDS: LORAZEPAM 0.5 MG TABLET PO PRN (20:38)
--- NOTE | 2017-06-08 21:04 | RADIOLOGY REPORT (SQ) ---
EXAM DESCRIPTION: CHEST SINGLE VIEW COMPLETED DATE/TIME: 06/08/2017 8:47 pm REASON FOR STUDY: central line placement COMPARISON: 06/05/2017 EXAM PARAMETERS: NUMBER OF VIEWS: One view. TECHNIQUE: Single frontal radiographic view of the chest acquired. RADIATION DOSE: NA LIMITATIONS: None. FINDINGS: LUNGS AND PLEURA: There is a 20% pneumothorax seen in the right apex. There is no pulmona ry infiltrate or pleural effusion. MEDIASTINUM AND HILAR STRUCTURES: No masses. Contour normal. HEART AND VASCULAR STRUCTURES: Heart normal in size. Normal vasculature. BONES: No acute findings. HARDWARE: A right subclavian catheter has its tip in the superior vena cava. OTHER: No other significant finding. IMPRESSION: 20% right pneumothorax after catheter placement. TECHNICAL DOCUMENTATION: JOB ID: [id number] [employer]- All Rights Reserved Reading location - IP/workstation name: [email or web address]
[2017-06-08] MEDS: ATORVASTATIN CALCIUM 40 MG TABLET PO SCH (21:31)
[2017-06-08] MEDS: TRAZODONE HCL 50 MG TABLET PO SCH (21:31)
--- NOTE | 2017-06-08 21:33 | OPERATIVE REPORT E ---
Operative Report NAME: KEELEY GALEANO : 1960 AGE: 57Y DATE OF SURGERY: 06/08/2017 ROOM: 527 PREOPERATIVE DIAGNOSIS: PATIENT NEEDED CENTRAL LINE FOR CT ANGIO. POSTOPERATIVE DIAGNOSIS: PATIENT NEEDED CENTRAL LINE FOR CT ANGIO. OPERATION: Placement of right subclavian vein triple-lumen catheter. SURGEON: YVETTE GARCIA M.D. ANESTHESIA: Local. TISSUE REMOVED OR ALTERED: PROCEDURE: Patient was placed in Trendelenburg position and the right chest and neck were then prepped and draped in the usual sterile fashion. The right infraclavicular area was then injected with lidocaine. Next, the right subclavian vein was then punctured and guidewire passed through the needle into the direction of the superior vena cava. Needle was removed and the puncture site dilated. A triple-lumen catheter inserted through the guidewire up to a distance of about 16 cm. All the 3 ports aspirated blood easily and instilled saline easily. The catheter was anchored to the skin with 3-0 silk and a Biopatch placed at the insertion site, and a transparent dressing placed over the Biopatch and catheter. Chest x-ray will be obtained for placement. Patient tolerated procedure well. DICTATING PHYSICIAN: YVETTE GARCIA M.D. [id number] [facility]#: [id number] ID: [id number] JOB#: [id number] ACCT: [id number] cc:YVETTE GARCIA M.D. >
[2017-06-09 01:51] LABS: ARTERIAL BLOOD BASE EXCESS 2.5 mmol/L; ARTERIAL BLOOD FIO2 100%; ARTERIAL BLOOD H2CO3 3.89 mmol/L (1.05-1.35); ARTERIAL BLOOD HCO3 37.3 mmol/L (20-26); ARTERIAL BLOOD O2 SATURATION 89.2 % (94-98); ARTERIAL BLOOD PO2 80.5 mmHg (80-100); ARTERIAL BLOOD TOTAL CO2 41.3 mmol/L (21-25)
--- NOTE | 2017-06-09 01:51 | RADIOLOGY REPORT (SQ) ---
EXAM DESCRIPTION: CHEST SINGLE VIEW CLINICAL HISTORY: 57 years Female, Increase in difficulty breathing COMPARISON: 3.12.18 NUMBER OF VIEWS/TECHNIQUE: 1/AP LIMITATIONS: None. FINDINGS: Increased moderate right pneumothorax with apical pleural separation measuring 4 cm compared with 1.9 cm one day prior, estimated 37%. Normal cardiac silhouette. Right subclavian central line tip at the SVC. IMPRESSION: Increased moderate (greater than 37%) right pneumothorax.
[2017-06-09 01:52] LABS: ARTERIAL BLOOD PH 7.08 (7.35-7.45)
[2017-06-09 01:53] LABS: ARTERIAL BLOOD PCO2 129.3 mmHg (35-45)
[2017-06-09] MEDS ORDERED: LIDOCAINE 1% INJ-PF (10 MG/ML) 30 ML SDV ONE (01:58)
[2017-06-09] MEDS ORDERED: LIDOCAINE 0.5% INJ-PF (5 MG/ML) 50 ML SDV ONE (01:58)
[2017-06-09] MEDS ORDERED: IPRATROPIUM/ALBUTEROL 0.5-2.5 MG/3 ML AMPUL NEB ONE (02:00)
[2017-06-09] MEDS ORDERED: FENTANYL CITRATE INJ/PF 100 MCG/2 ML AMPUL ONE (02:38)
[2017-06-09] MEDS ORDERED: FENTANYL CITRATE INJ/PF 50 MCG/1 ML 50 ML SDV IV ONE (03:00)
[2017-06-09] MEDS: OXYCODONE HCL IR 5 MG TABLET PO PRN ×4 (03:17→23:46)
--- NOTE | 2017-06-09 03:19 | RADIOLOGY REPORT (SQ) ---
EXAM DESCRIPTION: CHEST SINGLE VIEW CLINICAL HISTORY: 57 years Female, chest tube COMPARISON: 3.13.18 NUMBER OF VIEWS/TECHNIQUE: 1/AP LIMITATIONS: None. FINDINGS: Minimal right pneumothorax with pleural separation measuring 0.8 cm. Right chest tube. Normal cardiac silhouette. Right subclavian central line tip at the cavoatrial junction. IMPRESSION: Improved minimal right pneumothorax. Right chest tube.
[2017-06-09] MEDS: IPRATROPIUM/ALBUTEROL 0.5-2.5 MG/3 ML AMPUL NEB SCH ×5 (03:55→20:44)
[2017-06-09] MEDS: LANSOPRAZOLE 30 MG TAB.RAP.DR PO SCH (05:10)
[2017-06-09] MEDS: AMOXICILLIN TR/POT CLAVULANATE 500-125 MG TAB PO SCH ×3 (05:10→23:23)
[2017-06-09] MEDS: METHYLPREDNISOLONE INJ 125 MG/2 ML SDV IV SCH ×3 (05:11→23:30)
[2017-06-09 05:43] LABS: HEMATOCRIT 38.7 % (36.0-47.0); HEMOGLOBIN 12.5 g/dL (12.0-15.5); MEAN CORPUSCULAR HEMOGLOBIN 29.4 pg (27.0-33.4); MEAN CORPUSCULAR HGB CONC 32.2 g/dL (32.0-36.0); MEAN CORPUSCULAR VOLUME 91 fl (80-97); PLATELET COUNT 187 10^3/uL (150-450); RED BLOOD COUNT 4.24 10^6/uL (3.72-5.28); RED CELL DISTRIBUTION WIDTH 14.1 % (11.5-14.0); WHITE BLOOD COUNT 15.1 10^3/uL (4.0-10.5)
[2017-06-09 05:55] LABS: ALANINE AMINOTRANSFERASE 52 U/L (9-52); ALBUMIN 3.8 g/dL (3.5-5.0); ALKALINE PHOSPHATASE 67 U/L (38-126); ANION GAP 6 (5-19); ASPARTATE AMINO TRANSFERASE 65 U/L (14-36); BILIRUBIN,DIRECT 0.1 mg/dL (0.0-0.4); BILIRUBIN,TOTAL 0.1 mg/dL (0.2-1.3); BLOOD UREA NITROGEN 20 mg/dL (7-20); CALCIUM 9.2 mg/dL (8.4-10.2); CARBON DIOXIDE 33 mmol/L (22-30); CHLORIDE 99 mmol/L (98-107); GLUCOSE 118 mg/dL (75-110); POTASSIUM 5.3 mmol/L (3.6-5.0); SODIUM 137.6 mmol/L (137-145)
[2017-06-09 06:42] LABS: ABSOLUTE LYMPHOCYTES# (MANUAL) 4.1 10^3/uL (0.5-4.7); ABSOLUTE MONOCYTES # (MANUAL) 1.1 10^3/uL (0.1-1.4); BASOPHILS % (MANUAL) 0 % (0-2); EOSINOPHILS % (MANUAL) 0 % (0-6); LYMPHOCYTES % (MANUAL) 27 % (13-45); MONOCYTES % (MANUAL) 7 % (3-13); SEGMENTED NEUTROPHILS % (MAN) 66 % (42-78); TOTAL CELLS COUNTED 100
[2017-06-09 06:43] LABS: PLATELET COMMENT ADEQUATE; RBC MORPHOLOGY COMMENT NORMO-CYTIC/CHROMIC; TOXIC GRANULATION SLIGHT
--- NOTE | 2017-06-09 06:49 | OPERATIVE REPORT E ---
Operative Report NAME: KEELEY GALEANO : 1960 AGE: 57Y DATE OF SURGERY: 06/09/2017 ROOM: 303 PREOPERATIVE DIAGNOSIS: Traumatic right pneumothorax. POSTOPERATIVE DIAGNOSIS: Traumatic right pneumothorax. PROCEDURE: Placement of right chest tube. SURGEON: YVETTE GARCIA M.D. ANESTHESIA: Local. INDICATION: This is a 57-year-old female who just had a right subclavian vein triple-lumen catheter inserted around 5 p.m. Chest x-ray revealed about a 20% right pneumothorax. DESCRIPTION OF PROCEDURE: The patient was placed in the semi-erect position and the right chest just below the breast was then prepped and draped in the usual sterile fashion. Local anesthesia infiltrated just below the breast and a 2 cm incision made. Further placement of local anesthesia was made through the upper fifth rib and through the pleura using at least 20 mL of 0.5% Xylocaine. Next, the 5th intercostal space, was then bluntly opened with a hemostat and then a 24-[place] chest tube was then inserted up to about 20 cm. The chest tube was then anchored to the skin with 0 silk. Next, the chest tube, which has hemostat at the end, was then connected to a Pleur-evac and the hemostat then released with the patient dramatically feeling better. A sterile vaseline dressing placed around the chest tube. A chest x-ray was obtained, which showed right lung well expanded and the chest tube in fairly good position. It may be a little bit kinked towards the apex of the right lung. Chest tube then connected to suction to -20 cm water suction. The patient tolerated the procedure quite well. DICTATING PHYSICIAN: YVETTE GARCIA M.D. [id number] PHY#: [id number] ID: [id number] JOB#: [id number] ACCT: [id number] cc:YVETTE GARCIA M.D. > MTDFabien
[2017-06-09] MEDS: ALPRAZOLAM 0.5 MG TABLET PO SCH ×2 (07:51→23:29)
--- NOTE | 2017-06-09 08:37 | PDOC PROGRESS REPORT ---
Subjective Progress Note for:: 06/09/17 Subjective:: Patient was seen earlier this morning. Patient states that she is breathing okay this morning. Patient states that she is having pain from chest tube in place. Overnight central line was requested and during procedure patient developed the pneumo and surgery placed a chest tube. Patient this morning states that she is having pain and nursing states that they have given her pain medication. Prior to entering the room patient was sleeping awoke easily with stimulation. Reason For Visit: RIGHT PNEUMOTHORAX Physical Exam Vital Signs: Temp Pulse Resp BP Pulse Ox 99.0 F 118 H 24 H 150/88 H 96 06/09/17 07:27 06/09/17 07:27 06/09/17 07:27 06/09/17 07:27 06/09/17 07:27 Intake & Output 06/08/17 06/09/17 06/10/17 06:59 06:59 06:59 Intake Total 1767 1043 Output Total 800 Balance 967 1043 Weight 80.9 kg General appearance: PRESENT: no acute distress, well-developed, well-nourished Head exam: PRESENT: atraumatic, normocephalic Eye exam: PRESENT: conjunctiva pink, EOMI. ABSENT: scleral icterus Ear exam: PRESENT: normal external ear exam Mouth exam: PRESENT: moist, tongue midline Neck exam: ABSENT: carotid bruit, JVD, lymphadenopathy, thyromegaly Respiratory exam: PRESENT: other - Chest tube on right side in place, patient with diffuse wheezing heard more prominently on the left side, diminished breath sounds on right side, no accessory muscle use noted, patient able to speak in complete sentences. Cardiovascular exam: PRESENT: RRR. ABSENT: diastolic murmur, rubs, systolic murmur Pulses: PRESENT: normal dorsalis pedis pul Vascular exam: PRESENT: normal capillary refill GI/Abdominal exam: PRESENT: normal bowel sounds, soft. ABSENT: distended, guarding, mass, organolmegaly, rebound, tenderness Rectal exam: PRESENT: deferred Extremities exam: PRESENT: full ROM. ABSENT: calf tenderness, clubbing, pedal edema Musculoskeletal exam: PRESENT: full ROM Neurological exam: PRESENT: alert, awake, oriented to person, oriented to place , oriented to time, oriented to situation, CN II-XII grossly intact. ABSENT: motor sensory deficit Psychiatric exam: PRESENT: appropriate affect, normal mood. ABSENT: homicidal ideation, suicidal ideation Skin exam: PRESENT: dry, intact, warm. ABSENT: cyanosis, rash Results Laboratory Results: 06/09/17 05:10 06/09/17 05:10 06/09/17 06/09/17 06/09/17 01:40 05:10 05:10 WBC 15.1 H RBC 4.24 Hgb 12.5 Hct 38.7 MCV 91 MCH 29.4 MCHC 32.2 RDW 14.1 H Plt Count 187 Seg Neutrophils % Not Reportable Lymphocytes % Not Reportable Monocytes % Not Reportable Eosinophils % Not Reportable Basophils % Not Reportable Absolute Neutrophils Not Reportable Absolute Lymphocytes Not Reportable Absolute Monocytes Not Reportable Absolute Eosinophils Not Reportable Absolute Basophils Not Reportable Carbonic Acid 3.89 H HCO3/H2CO3 Ratio 9:1 ABG pH 7.08 L* ABG pCO2 129.3 H* ABG pO2 80.5 ABG HCO3 37.3 H ABG O2 Saturation 89.2 L ABG Base Excess 2.5 FiO2 100% Sodium 137.6 Potassium 5.3 H Chloride 99 Carbon Dioxide 33 H Anion Gap 6 BUN 20 Creatinine 0.71 Est GFR ( Amer) > 60 Est GFR (Non-Af Amer) > 60 Glucose 118 H Calcium 9.2 Total Bilirubin 0.1 L AST 65 H ALT 52 Alkaline Phosphatase 67 Total Protein 6.0 L Albumin 3.8 Impressions: Chest X-Ray 06/09/17 00:00 IMPRESSION: Improved minimal right pneumothorax. Right chest tube. Assessment & Plan - Diagnosis (1) Pneumothorax, right Is this a current diagnosis for this admission?: Yes Plan: Surgery placed central line and due to development of right pneumothorax chest tube was placed. Appreciate surgery's assistance with patient's care. Due to pain meds shortness patient is on fentanyl 24 mcg IV every 8 hours as needed for pain (2) Acute respiratory failure with hypoxia Is this a current diagnosis for this admission?: Yes Plan: Secondary to COPD exacerbation: We will continue breathing treatments, steroids , and antibiotics. Patient on facemask at 6 L. Requested for ABG and patient refused ABG. Pulmonary following patient. (3) COPD with exacerbation Is this a current diagnosis for this admission?: Yes Plan: We will continue patient on steroids, antibiotics, and DuoNeb. Patient currently on face mask 6 L. Patient demonstrating slight improvement. CTA of chest planned patient remained stable. Patient is presentations most consistently with COPD exacerbation however would like to evaluate for other possible causes. Will place on SQ heparin Q8. Concern for PE low probability given the fact that pt has other reason for respiratory distress. (4) Hyperlipidemia Is this a current diagnosis for this admission?: Yes Plan: Will continue statin. (5) Diastolic CHF Qualifiers: Heart failure chronicity: chronic Qualified Code(s): I50.32 - Chronic diastolic (congestive) heart failure Is this a current diagnosis for this admission?: No Plan: Euvolemic: We will continue to monitor patient closely. Will not place patient on IV fluids. (6) Anxiety Is this a current diagnosis for this admission?: Yes Plan: Pt's ativan has been adjusted. (7) Leukocytosis Is this a current diagnosis for this admission?: Yes Plan: Secondary to Steroids: Will continue to monitor. (8) DVT prophylaxis Is this a current diagnosis for this admission?: Yes Plan: Placed on subcu heparin - Time Time Spent with patient: 25-34 minutes
--- NOTE | 2017-06-09 09:42 | Progress Note ---
Provider Note Provider Note: Patient was seen again. Patient was alert and oriented to person place and time reported that the patient was transfused 2018 and gave her date of . Patient was holding her 's hand and they were talking to each other. Patient states that she now is agreeable to have ABG therefore respiratory was able to draw it. Patient states that she is short of breath. I received call from Dr. Pike and will transfer to the ICU for closer observation.
[2017-06-09] MEDS: CITALOPRAM HYDROBROMIDE 20 MG TABLET PO SCH (09:56)
[2017-06-09] MEDS: PREGABALIN 75 MG CAPSULE PO SCH ×2 (09:56→23:30)
[2017-06-09] MEDS: NICOTINE 21 MG/24 HR PATCH.TD24 TD SCH (09:56)
[2017-06-09 10:00] LABS: ARTERIAL BLOOD BASE EXCESS 6.3 mmol/L; ARTERIAL BLOOD FIO2 2L; ARTERIAL BLOOD H2CO3 2.02 mmol/L (1.05-1.35); ARTERIAL BLOOD HCO3 34.8 mmol/L (20-26); ARTERIAL BLOOD O2 SATURATION 94.6 % (94-98); ARTERIAL BLOOD PCO2 67.2 mmHg (35-45); ARTERIAL BLOOD PH 7.33 (7.35-7.45); ARTERIAL BLOOD PO2 79.4 mmHg (80-100); ARTERIAL BLOOD TOTAL CO2 36.9 mmol/L (21-25)
[2017-06-09] MEDS: METHOCARBAMOL 750 MG TABLET PO SCH ×2 (10:53→23:24)
[2017-06-09] MEDS: HEPARIN SOD (PORCINE) 5,000 UNIT/ML 1 ML SYRINGE SUBCUT SCH ×2 (15:05→23:31)
--- NOTE | 2017-06-09 15:13 | PDOC CONSULTATION ---
Consultation Consult Date: 06/09/17 Attending physician:: MUMTAZ CONSTANTINO Consult reason:: acute/chronic resp failure History of Present Illness Admission Date/PCP: 06/05/17 16:54 History of Present Illness: KEELEY GALEANO is a 57 year old female presents to the hospital with complaint of shortness of breath for 2 days. Patient states this morning her breathing worsened. Patient states she does have productive cough which is clear. Patient reports that a few days ago she had a skin biopsy done and was placed on Keflex twice a day. Patient states she started antibiotics yesterday. Patient reports that she still is actively smoking.she was initally very confused but was takenn to ICU placed on bipap better now wondering what happened ,where is she and how did she get here.She is a active smoker. Past Medical History Cardiac Medical History: Reports: Congestive Heart Failure, Coronary Artery Disease, Hypertension Pulmonary Medical History: Reports: Asthma, Chronic Obstructive Pulmonary Disease (COPD) GI Medical History: Reports: Gastroesophageal Reflux Disease Musculoskeltal Medical History: Reports: Fibromyalgia Psychiatric Medical History: Reports: Depression Past Surgical History Past Surgical History: Reports: Adenoidectomy, Hysterectomy, Tonsillectomy, Vascular Surgery - Right-sided carotid endarterectomy Social History Smoking Status: Current Every Day Smoker Cigarettes Packs Per Day: 0.5 Number of Years Smokin Last Time Smoked: 06/03/2017 Frequency of Alcohol Use: None Hx Recreational Drug Use: No Drugs: None Hx Prescription Drug Abuse: No Do you have pets?: No - Advance Directive Resuscitation Status: Full Code Family History Parental Family History Reviewed: No Children Family History Reviewed: No Sibling(s) Family History Reviewed.: No Medication/Allergy Home Medications: Alprazolam [Xanax] 1 mg PO QAM 06/05/17 Alprazolam [Xanax] 2 mg PO QHS 06/05/17 Atorvastatin Calcium [Lipitor 40 mg Tablet] 40 mg PO QHS 06/05/17 Citalopram Hydrobromide [Celexa 20 mg Tablet] 20 mg PO DAILY 06/05/17 Furosemide [Lasix 20 mg Tablet] 20 mg PO DAILYP PRN 06/05/17 Methocarbamol [Robaxin 750 mg Tablet] 750 mg PO Q12 06/05/17 Oxycodone HCl 15 mg PO Q6HP PRN 06/05/17 Pregabalin [Lyrica] 150 mg PO Q12 06/05/17 Trazodone HCl [Desyrel] 150 mg PO QHS 06/05/17 Zolpidem Tartrate [Ambien] 10 mg PO QHS 06/05/17 Allergies/Adverse Reactions: levofloxacin [From Levaquin] Adverse Reaction (Verified 06/24/15 11:57) redness to face Review of Systems Constitutional: PRESENT: chills Physical Exam Vital Signs: Temp Pulse Resp BP Pulse Ox 99.0 F 100 34 H 120/84 96 06/09/17 11:03 06/09/17 11:03 06/09/17 11:03 06/09/17 11:03 06/09/17 11:03 Intake & Output 06/08/17 06/09/17 06/10/17 06:59 06:59 06:59 Intake Total 1767 1043 Output Total 800 Balance 967 1043 Weight 80.9 kg 80.9 kg General appearance: PRESENT: no acute distress, disheveled, obese, well- developed. ABSENT: cooperative Head exam: PRESENT: atraumatic, normocephalic Eye exam: PRESENT: conjunctiva pale, EOMI. ABSENT: nystagmus, periorbital swelling, scleral icterus Mouth exam: PRESENT: dry mucosa, neck supple, tongue midline Neck exam: ABSENT: carotid bruit, JVD, lymphadenopathy, thyromegaly, tracheal deviation, tracheostomy Respiratory exam: PRESENT: decreased breath sounds, prolonged expiratory phas, rhonchi, unlabored, wheezes. ABSENT: crackles, rales, retraction, stridor Cardiovascular exam: PRESENT: RRR, +S1, +S2 Pulses: PRESENT: normal radial pulses GI/Abdominal exam: PRESENT: diminished bowel sounds, soft Extremities exam: PRESENT: full ROM. ABSENT: clubbing, joint swelling Musculoskeletal exam: ABSENT: deformity, dislocation Neurological exam: PRESENT: awake. ABSENT: alert, oriented to time, oriented to situation Skin exam: PRESENT: dry, warm Results Laboratory Results: 06/09/17 05:10 06/09/17 05:10 06/09/17 06/09/17 06/09/17 01:40 05:10 05:10 WBC 15.1 H RBC 4.24 Hgb 12.5 Hct 38.7 MCV 91 MCH 29.4 MCHC 32.2 RDW 14.1 H Plt Count 187 Seg Neutrophils % Not Reportable Lymphocytes % Not Reportable Monocytes % Not Reportable Eosinophils % Not Reportable Basophils % Not Reportable Absolute Neutrophils Not Reportable Absolute Lymphocytes Not Reportable Absolute Monocytes Not Reportable Absolute Eosinophils Not Reportable Absolute Basophils Not Reportable Carbonic Acid 3.89 H HCO3/H2CO3 Ratio 9:1 ABG pH 7.08 L* ABG pCO2 129.3 H* ABG pO2 80.5 ABG HCO3 37.3 H ABG O2 Saturation 89.2 L ABG Base Excess 2.5 FiO2 100% Sodium 137.6 Potassium 5.3 H Chloride 99 Carbon Dioxide 33 H Anion Gap 6 BUN 20 Creatinine 0.71 Est GFR ( Amer) > 60 Est GFR (Non-Af Amer) > 60 Glucose 118 H Calcium 9.2 Total Bilirubin 0.1 L AST 65 H ALT 52 Alkaline Phosphatase 67 Total Protein 6.0 L Albumin 3.8 06/09/17 09:30 WBC RBC Hgb Hct MCV MCH MCHC RDW Plt Count Seg Neutrophils % Lymphocytes % Monocytes % Eosinophils % Basophils % Absolute Neutrophils Absolute Lymphocytes Absolute Monocytes Absolute Eosinophils Absolute Basophils Carbonic Acid 2.02 H HCO3/H2CO3 Ratio 17:1 ABG pH 7.33 L ABG pCO2 67.2 H ABG pO2 79.4 L ABG HCO3 34.8 H ABG O2 Saturation 94.6 ABG Base Excess 6.3 FiO2 2L Sodium Potassium Chloride Carbon Dioxide Anion Gap BUN Creatinine Est GFR ( Amer) Est GFR (Non-Af Amer) Glucose Calcium Total Bilirubin AST ALT Alkaline Phosphatase Total Protein Albumin Impressions: Chest X-Ray 06/09/17 00:00 IMPRESSION: Improved minimal right pneumothorax. Right chest tube. Assessment & Plan - Diagnosis (1) Carbon dioxide narcosis Is this a current diagnosis for this admission?: Yes Plan: confused lethargic pco2 129 responding well to nippv interventions (2) Acute respiratory failure with hypoxia Is this a current diagnosis for this admission?: Yes Plan: supp O2 min amount to keep SAO2 90-92% (3) COPD with exacerbation Is this a current diagnosis for this admission?: Yes Plan: bronnchodilators Generic Name Dose Route Start Last Admin Trade Name Freq PRN Reason Stop Dose Admin Methylprednisolone Sodium Succinate 60 mg 06/05/17 22:00 06/09/17 15:04 Solu-Medrol Inj/Pf 125 Mg/2 Ml Sdv IV 07/05/17 21:59 60 mg Q8 LIBRADO Benzonatate 200 mg 06/07/17 16:04 06/08/17 04:31 Tessalon Perles 100 Mg Capsule PO 07/07/17 16:03 200 mg Q8HP PRN FOR COUGH Nicotine 1 each 06/06/17 10:00 06/09/17 09:56 Nicoderm 21 Mg/24 Hr Transderm Patch TD 07/06/17 09:59 1 each DAILY LIBRADO Albuterol/Ipratropium 3 ml 06/05/17 20:00 06/09/17 12:40 Duoneb 3 Ml Ampul NEB 07/05/17 19:59 3 ml RTQ4 LIBRADO (4) Pneumothorax, right Is this a current diagnosis for this admission?: Yes Plan: per surgery - Time Total Critical Time (Minutes): 50
[2017-06-09] MEDS: BENZONATATE 100 MG CAPSULE PO PRN (17:12)
--- NOTE | 2017-06-09 19:46 | PDOC PROGRESS REPORT ---
Subjective Progress Note for:: 06/09/17 Subjective:: sleeping when sen in ICU with no tachypnea. Reason For Visit: RIGHT PNEUMOTHORAX Physical Exam Vital Signs: Temp Pulse Resp BP Pulse Ox 98.3 F 85 21 H 117/85 95 06/09/17 19:00 06/09/17 19:00 06/09/17 19:00 06/09/17 19:00 06/09/17 19:00 Intake & Output 06/08/17 06/09/17 06/10/17 06:59 06:59 06:59 Intake Total 1767 1043 Output Total 800 300 Balance 967 1043 -300 Weight 80.9 kg 80.9 kg Exam: Chest tube in place with no air leak. Results Laboratory Results: 06/09/17 05:10 06/09/17 05:10 06/09/17 06/09/17 06/09/17 01:40 05:10 05:10 WBC 15.1 H RBC 4.24 Hgb 12.5 Hct 38.7 MCV 91 MCH 29.4 MCHC 32.2 RDW 14.1 H Plt Count 187 Seg Neutrophils % Not Reportable Lymphocytes % Not Reportable Monocytes % Not Reportable Eosinophils % Not Reportable Basophils % Not Reportable Absolute Neutrophils Not Reportable Absolute Lymphocytes Not Reportable Absolute Monocytes Not Reportable Absolute Eosinophils Not Reportable Absolute Basophils Not Reportable Carbonic Acid 3.89 H HCO3/H2CO3 Ratio 9:1 ABG pH 7.08 L* ABG pCO2 129.3 H* ABG pO2 80.5 ABG HCO3 37.3 H ABG O2 Saturation 89.2 L ABG Base Excess 2.5 FiO2 100% Sodium 137.6 Potassium 5.3 H Chloride 99 Carbon Dioxide 33 H Anion Gap 6 BUN 20 Creatinine 0.71 Est GFR ( Amer) > 60 Est GFR (Non-Af Amer) > 60 Glucose 118 H Calcium 9.2 Total Bilirubin 0.1 L AST 65 H ALT 52 Alkaline Phosphatase 67 Total Protein 6.0 L Albumin 3.8 06/09/17 09:30 WBC RBC Hgb Hct MCV MCH MCHC RDW Plt Count Seg Neutrophils % Lymphocytes % Monocytes % Eosinophils % Basophils % Absolute Neutrophils Absolute Lymphocytes Absolute Monocytes Absolute Eosinophils Absolute Basophils Carbonic Acid 2.02 H HCO3/H2CO3 Ratio 17:1 ABG pH 7.33 L ABG pCO2 67.2 H ABG pO2 79.4 L ABG HCO3 34.8 H ABG O2 Saturation 94.6 ABG Base Excess 6.3 FiO2 2L Sodium Potassium Chloride Carbon Dioxide Anion Gap BUN Creatinine Est GFR ( Amer) Est GFR (Non-Af Amer) Glucose Calcium Total Bilirubin AST ALT Alkaline Phosphatase Total Protein Albumin Impressions: Chest X-Ray 06/09/17 00:00 IMPRESSION: Improved minimal right pneumothorax. Right chest tube. Assessment & Plan - Time Time Spent with patient: 15-24 minutes - Plan Summary Plan Summary: Check Chest Xray. If pneumo resolved then place chest tube to water seal
[2017-06-09] MEDS: FENTANYL CITRATE INJ/PF 100 MCG/2 ML AMPUL IV PRN (20:34)
--- NOTE | 2017-06-09 21:00 | RADIOLOGY REPORT (SQ) ---
May EXAM DESCRIPTION: CHEST SINGLE VIEW COMPLETED DATE/TIME: 06/09/2017 8:40 pm REASON FOR STUDY: chest tube placement COMPARISON: 06/09/2017 EXAM PARAMETERS: NUMBER OF VIEWS: One view. TECHNIQUE: Single frontal radiographic view of the chest acquired. RADIATION DOSE: NA LIMITATIONS: None. FINDINGS: LUNGS AND PLEURA: The right lung is re-expanded. There is no infiltrate or effusion. MEDIASTINUM AND HILAR STRUCTURES: No masses. Contour normal. HEART AND VASCULAR STRUCTURES: Heart normal in size. Normal vasculature. BONES: No acute findings. HARDWARE: Right subclavian line. Right thoracotomy tube. OTHER: No other significant finding. IMPRESSION: The right lung is re-expanded. TECHNICAL DOCUMENTATION: JOB ID: [id number] [employer]- All Rights Reserved Reading location - IP/workstation name: [email or web address]
[2017-06-09] MEDS: TRAZODONE HCL 50 MG TABLET PO SCH (23:27)
[2017-06-09] MEDS: ATORVASTATIN CALCIUM 40 MG TABLET PO SCH (23:28)
[2017-06-09] MEDS: LORAZEPAM 0.5 MG TABLET PO PRN (23:29)
[2017-06-10] MEDS: IPRATROPIUM/ALBUTEROL 0.5-2.5 MG/3 ML AMPUL NEB SCH ×6 (00:40→20:55)
[2017-06-10] MEDS: BENZONATATE 100 MG CAPSULE PO PRN (05:44)
[2017-06-10] MEDS: OXYCODONE HCL IR 5 MG TABLET PO PRN ×3 (05:45→23:10)
[2017-06-10] MEDS: LANSOPRAZOLE 30 MG TAB.RAP.DR PO SCH (05:45)
[2017-06-10] MEDS: AMOXICILLIN TR/POT CLAVULANATE 500-125 MG TAB PO SCH ×3 (05:45→22:06)
[2017-06-10] MEDS: FENTANYL CITRATE INJ/PF 100 MCG/2 ML AMPUL IV PRN ×4 (05:45→18:55)
[2017-06-10 05:47] LABS: ABSOLUTE LYMPHOCYTES (AUTO) 0.8 10^3/uL (0.5-4.7); ABSOLUTE MONOCYTES (AUTO) 0.5 10^3/uL (0.1-1.4); BASOPHILS % (AUTO) 0.1 % (0-2); HEMATOCRIT 40.2 % (36.0-47.0); HEMOGLOBIN 13.5 g/dL (12.0-15.5); LYMPHOCYTES % (AUTO) 9.6 % (13-45); MEAN CORPUSCULAR HGB CONC 33.5 g/dL (32.0-36.0); MEAN CORPUSCULAR VOLUME 90 fl (80-97); MONOCYTES % (AUTO) 6.3 % (3-13); PLATELET COUNT 164 10^3/uL (150-450); RED BLOOD COUNT 4.49 10^6/uL (3.72-5.28); RED CELL DISTRIBUTION WIDTH 14.2 % (11.5-14.0); TOTAL CELLS COUNTED % (AUTO) 100 %; WHITE BLOOD COUNT 8.4 10^3/uL (4.0-10.5)
[2017-06-10 05:48] LABS: ARTERIAL BLOOD BASE EXCESS 8.5 mmol/L; ARTERIAL BLOOD H2CO3 1.56 mmol/L (1.05-1.35); ARTERIAL BLOOD HCO3 34.3 mmol/L (20-26); ARTERIAL BLOOD O2 SATURATION 89.5 % (94-98); ARTERIAL BLOOD PCO2 51.9 mmHg (35-45); ARTERIAL BLOOD PH 7.44 (7.35-7.45); ARTERIAL BLOOD PO2 55.6 mmHg (80-100); ARTERIAL BLOOD TOTAL CO2 35.9 mmol/L (21-25)
[2017-06-10] MEDS: METHYLPREDNISOLONE INJ 125 MG/2 ML SDV IV SCH ×3 (05:48→23:10)
[2017-06-10] MEDS: HEPARIN SOD (PORCINE) 5,000 UNIT/ML 1 ML SYRINGE SUBCUT SCH ×3 (05:48→22:09)
[2017-06-10 05:51] LABS: ARTERIAL BLOOD FIO2 30%
[2017-06-10 06:10] LABS: ALANINE AMINOTRANSFERASE 52 U/L (9-52); ALBUMIN 3.7 g/dL (3.5-5.0); ALKALINE PHOSPHATASE 70 U/L (38-126); ANION GAP 6 (5-19); ASPARTATE AMINO TRANSFERASE 59 U/L (14-36); BILIRUBIN,DIRECT 0.1 mg/dL (0.0-0.4); BILIRUBIN,TOTAL 0.3 mg/dL (0.2-1.3); BLOOD UREA NITROGEN 18 mg/dL (7-20); CALCIUM 9.3 mg/dL (8.4-10.2); CARBON DIOXIDE 35 mmol/L (22-30); CHLORIDE 95 mmol/L (98-107); GLUCOSE 117 mg/dL (75-110); POTASSIUM 4.8 mmol/L (3.6-5.0); SODIUM 136.3 mmol/L (137-145)
[2017-06-10] MEDS: ALPRAZOLAM 0.5 MG TABLET PO SCH ×2 (08:20→22:09)
[2017-06-10] MEDS: PREGABALIN 75 MG CAPSULE PO SCH ×2 (10:42→22:06)
[2017-06-10] MEDS: LORAZEPAM 0.5 MG TABLET PO PRN ×2 (10:42→22:09)
[2017-06-10] MEDS: CITALOPRAM HYDROBROMIDE 20 MG TABLET PO SCH (10:42)
[2017-06-10] MEDS: NICOTINE 21 MG/24 HR PATCH.TD24 TD SCH (10:43)
[2017-06-10] MEDS: METHOCARBAMOL 750 MG TABLET PO SCH ×2 (10:43→23:09)
--- NOTE | 2017-06-10 14:28 | PDOC PROGRESS REPORT ---
Subjective Progress Note for:: 06/10/17 Subjective:: No new complaints. Doing well with chest tube. Reason For Visit: RIGHT PNEUMOTHORAX Physical Exam Vital Signs: Temp Pulse Resp BP Pulse Ox 97.9 F 92 25 H 119/73 95 06/10/17 12:00 06/10/17 12:00 06/10/17 12:00 06/10/17 12:00 06/10/17 12:00 Intake & Output 06/09/17 06/10/17 06/11/17 06:59 06:59 06:59 Intake Total 1043 520 Output Total 780 365 Balance 1043 -260 -365 Weight 76.4 kg General appearance: PRESENT: no acute distress Head exam: PRESENT: atraumatic, normocephalic Eye exam: PRESENT: conjunctiva pink, EOMI, PERRLA. ABSENT: scleral icterus Neck exam: ABSENT: carotid bruit, JVD, lymphadenopathy, thyromegaly Respiratory exam: PRESENT: clear to auscultation immanuel, other - right chest tube without air leak, not on suction Cardiovascular exam: PRESENT: RRR. ABSENT: diastolic murmur, rubs, systolic murmur GI/Abdominal exam: PRESENT: normal bowel sounds, soft. ABSENT: distended, guarding, mass, organolmegaly, rebound, tenderness Gentrourinary exam: PRESENT: indwelling catheter Neurological exam: PRESENT: alert, awake, oriented to person, oriented to place , oriented to time, oriented to situation, CN II-XII grossly intact. ABSENT: motor sensory deficit Psychiatric exam: PRESENT: appropriate affect, normal mood. ABSENT: homicidal ideation, suicidal ideation Results Laboratory Results: 06/10/17 05:25 06/10/17 05:25 06/10/17 06/10/17 06/10/17 05:25 05:25 05:25 WBC 8.4 RBC 4.49 Hgb 13.5 Hct 40.2 MCV 90 MCH 30.0 MCHC 33.5 RDW 14.2 H Plt Count 164 Seg Neutrophils % 84.0 H Lymphocytes % 9.6 L Monocytes % 6.3 Eosinophils % 0.0 Basophils % 0.1 Absolute Neutrophils 7.0 Absolute Lymphocytes 0.8 Absolute Monocytes 0.5 Absolute Eosinophils 0.0 Absolute Basophils 0.0 Carbonic Acid 1.56 H HCO3/H2CO3 Ratio 21:1 ABG pH 7.44 ABG pCO2 51.9 H ABG pO2 55.6 L ABG HCO3 34.3 H ABG O2 Saturation 89.5 L ABG Base Excess 8.5 FiO2 30% Sodium 136.3 L Potassium 4.8 Chloride 95 L Carbon Dioxide 35 H Anion Gap 6 BUN 18 Creatinine 0.62 Est GFR ( Amer) > 60 Est GFR (Non-Af Amer) > 60 Glucose 117 H Calcium 9.3 Magnesium 2.3 Total Bilirubin 0.3 AST 59 H ALT 52 Alkaline Phosphatase 70 Total Protein 6.0 L Albumin 3.7 Impressions: Chest X-Ray 06/09/17 20:00 IMPRESSION: The right lung is re-expanded. Assessment & Plan - Diagnosis (1) Pneumothorax, right Is this a current diagnosis for this admission?: Yes - Plan Summary Plan Summary: Repeat CXR today Possible clamping and removal of chest tube tomorrow.
--- NOTE | 2017-06-10 14:49 | RADIOLOGY REPORT (SQ) ---
EXAM DESCRIPTION: CHEST SINGLE VIEW COMPLETED DATE/TIME: 06/10/2017 2:37 pm REASON FOR STUDY: right pneumothorax COMPARISON: 06/09/2017 EXAM PARAMETERS: NUMBER OF VIEWS: One view. TECHNIQUE: Single frontal radiographic view of the chest acquired. RADIATION DOSE: NA LIMITATIONS: None. FINDINGS: LUNGS AND PLEURA: The right lung is expanded. No acute infiltrate or effusion. MEDIASTINUM AND HILAR STRUCTURES: No masses. Contour normal. HEART AND VASCULAR STRUCTURES: Heart normal in size. Normal vasculature. BONES: No acute findings. HARDWARE: Thoracotomy tube on the right. Right subclavian catheter. OTHER: No other significant finding. IMPRESSION: The right lung remains expanded. TECHNICAL DOCUMENTATION: JOB ID: [id number] [employer]- All Rights Reserved Reading location - IP/workstation name: [email or web address]
[2017-06-10] MEDS ORDERED: AZITHROMYCIN INJ 500 MG VIAL IV SCH (15:00)
[2017-06-10] MEDS ORDERED: BUDESONIDE NEB 0.5 MG/2 ML AMPUL NEB SCH (15:00)
[2017-06-10] MEDS ORDERED: BUDESONIDE NEB 0.5 MG/2 ML AMPUL NEB ONE (16:00)
[2017-06-10] MEDS: AZITHROMYCIN 500 MG in DEXTROSE 5%-WATER 250 ML IV SCH (17:27)
[2017-06-10] MEDS ORDERED: FENTANYL CITRATE INJ/PF 100 MCG/2 ML AMPUL IV ONE (19:00)
--- NOTE | 2017-06-10 19:13 | RADIOLOGY REPORT (SQ) ---
EXAM DESCRIPTION: CHEST SINGLE VIEW COMPLETED DATE/TIME: 06/10/2017 6:55 pm REASON FOR STUDY: CHEST PAIN COMPARISON: 06/10/2017 at 1434 hours. EXAM PARAMETERS: NUMBER OF VIEWS: One view. TECHNIQUE: Single frontal radiographic view of the chest acquired. RADIATION DOSE: NA LIMITATIONS: None. FINDINGS: LUNGS AND PLEURA: No opacities, masses or pneumothorax. No pleural effusion. MEDIASTINUM AND HILAR STRUCTURES: No masses. Contour normal. HEART AND VASCULAR STRUCTURES: Heart normal in size. Normal vasculature. BONES: No acute findings. HARDWARE: Central line. Right chest tube. OTHER: No other significant finding. IMPRESSION: STABLE APPEARANCE OF THE CHEST. TECHNICAL DOCUMENTATION: JOB ID: [id number] [employer]- All Rights Reserved Reading location - IP/workstation name: [email or web address]
--- NOTE | 2017-06-10 19:27 | PDOC PROGRESS REPORT ---
Subjective Progress Note for:: 06/10/17 Subjective:: Patient had a period of acute respiratory failure with hypercapnia and had respiratory acidemia. He was moved to the ICU and BiPAP support was performed. Patient should continue intermittent BiPAP support during the day and wear BiPAP for rest at night. Chest tube in her right chest with resolution of her pneumothorax. Complaints of pain today in her chest. Was evaluated by EKG and found to not have any cardiac/ischemic changes. Patient should consists continue with chest tube to waterseal overnight. Patient will be pain treated at present. Troponin has been ordered and pending at present. Reason For Visit: RIGHT PNEUMOTHORAX Physical Exam Vital Signs: Temp Pulse Resp BP Pulse Ox 97.2 F 87 19 123/84 100 06/10/17 16:00 06/10/17 16:00 06/10/17 16:00 06/10/17 16:00 06/10/17 16:00 Intake & Output 06/09/17 06/10/17 06/11/17 06:59 06:59 06:59 Intake Total 1043 520 120 Output Total 780 725 Balance 1043 -260 -605 Weight 76.4 kg General appearance: PRESENT: no acute distress, obese Head exam: PRESENT: atraumatic, normocephalic Eye exam: PRESENT: EOMI, PERRLA Ear exam: ABSENT: bleeding, drainage, normal external ear exam Mouth exam: PRESENT: moist, neck supple, tongue midline Neck exam: ABSENT: carotid bruit, JVD, lymphadenopathy, tenderness, thyromegaly Respiratory exam: PRESENT: chest wall tenderness, wheezes. ABSENT: accessory muscle use, crackles, rales, rhonchi Cardiovascular exam: PRESENT: +S1, +S2. ABSENT: diastolic murmur, systolic murmur, tachycardia Pulses: PRESENT: normal carotid pulses, +2 pedal pulses bilateral GI/Abdominal exam: ABSENT: ascites, distended, firm, guarding Musculoskeletal exam: PRESENT: full ROM. ABSENT: tenderness Neurological exam: PRESENT: alert, oriented to person, oriented to place, oriented to time, CN II-XII grossly intact Psychiatric exam: PRESENT: anxious. ABSENT: agitated, flat affect, manic Focused psych exam: ABSENT: catatonic, delusional, pressured speech, psychomotor agitation Skin exam: ABSENT: abrasion, cyanosis, jaundice Results Laboratory Results: 06/10/17 05:25 06/10/17 05:25 06/10/17 06/10/17 06/10/17 05:25 05:25 05:25 WBC 8.4 RBC 4.49 Hgb 13.5 Hct 40.2 MCV 90 MCH 30.0 MCHC 33.5 RDW 14.2 H Plt Count 164 Seg Neutrophils % 84.0 H Lymphocytes % 9.6 L Monocytes % 6.3 Eosinophils % 0.0 Basophils % 0.1 Absolute Neutrophils 7.0 Absolute Lymphocytes 0.8 Absolute Monocytes 0.5 Absolute Eosinophils 0.0 Absolute Basophils 0.0 Carbonic Acid 1.56 H HCO3/H2CO3 Ratio 21:1 ABG pH 7.44 ABG pCO2 51.9 H ABG pO2 55.6 L ABG HCO3 34.3 H ABG O2 Saturation 89.5 L ABG Base Excess 8.5 FiO2 30% Sodium 136.3 L Potassium 4.8 Chloride 95 L Carbon Dioxide 35 H Anion Gap 6 BUN 18 Creatinine 0.62 Est GFR ( Amer) > 60 Est GFR (Non-Af Amer) > 60 Glucose 117 H Calcium 9.3 Magnesium 2.3 Total Bilirubin 0.3 AST 59 H ALT 52 Alkaline Phosphatase 70 Total Protein 6.0 L Albumin 3.7 06/07/17 07:15 Sputum Gram Stain - Final 06/07/17 07:15 Sputum Sputum Culture - Final Haemophilus Influenzae Normal Romina Impressions: Chest X-Ray 06/10/17 00:00 IMPRESSION: STABLE APPEARANCE OF THE CHEST. Assessment & Plan - Plan Summary Plan Summary: 1. Pneumothorax Chest tube in place, surgery following, pneumothorax has resolved at present on x-ray. Possible to remove CT soon 2. Acute respiratory failure with hypercapnia. COPD exacerbation. Continue supplemental oxygen as needed, wean as tolerated. Patient with elevated pCO2, improved on BiPAP. Continue nebulized medicines, IV steroids. stable respiratory condition today, can move to intermediate unit. 3. Haemophilus influenza PNA positive on sputum cult Was started on Augmentin PO. Given her ICU/respiratory decline, will start IV Azithromycin. 4. Diastolic HF. relatively euvolemic 5. Leukocytosis. improved. Secondary to steroids vs. PNA 6. Anxiety: Ativan 7. Hyperlipidemia on statin
[2017-06-10] MEDS ORDERED: LORAZEPAM INJ 2 MG/1 ML VIAL ONE (19:39)
[2017-06-10] MEDS ORDERED: HALOPERIDOL LACTATE INJ 5 MG/1 ML VIAL IV ONE (19:42)
--- NOTE | 2017-06-10 19:51 | PDOC PROGRESS REPORT ---
Subjective Progress Note for:: 06/10/17 Subjective:: my chest is sore Reason For Visit: RIGHT PNEUMOTHORAX Physical Exam Vital Signs: Temp Pulse Resp BP Pulse Ox 97.2 F 87 22 H 125/81 91 L 06/10/17 16:00 06/10/17 16:00 06/10/17 19:27 06/10/17 19:27 06/10/17 19:27 Intake & Output 06/09/17 06/10/17 06/11/17 06:59 06:59 06:59 Intake Total 1043 520 520 Output Total 780 925 Balance 1043 260 -405 Weight 76.4 kg General appearance: PRESENT: no acute distress, cooperative, disheveled, well- developed Head exam: PRESENT: atraumatic, normocephalic Eye exam: PRESENT: conjunctiva pale, EOMI. ABSENT: nystagmus, periorbital swelling, scleral icterus Mouth exam: PRESENT: dry mucosa, neck supple Neck exam: ABSENT: carotid bruit, JVD, lymphadenopathy, thyromegaly, tracheal deviation, tracheostomy Respiratory exam: PRESENT: decreased breath sounds, prolonged expiratory phas, other - R chest tube Cardiovascular exam: PRESENT: RRR, +S1, +S2 Pulses: PRESENT: normal radial pulses GI/Abdominal exam: PRESENT: diminished bowel sounds, soft Extremities exam: ABSENT: clubbing, joint swelling Musculoskeletal exam: ABSENT: deformity, dislocation Neurological exam: PRESENT: alert, awake Psychiatric exam: PRESENT: normal mood Skin exam: PRESENT: dry, warm Results Laboratory Results: 06/10/17 05:25 06/10/17 05:25 06/10/17 06/10/17 06/10/17 05:25 05:25 05:25 WBC 8.4 RBC 4.49 Hgb 13.5 Hct 40.2 MCV 90 MCH 30.0 MCHC 33.5 RDW 14.2 H Plt Count 164 Seg Neutrophils % 84.0 H Lymphocytes % 9.6 L Monocytes % 6.3 Eosinophils % 0.0 Basophils % 0.1 Absolute Neutrophils 7.0 Absolute Lymphocytes 0.8 Absolute Monocytes 0.5 Absolute Eosinophils 0.0 Absolute Basophils 0.0 Carbonic Acid 1.56 H HCO3/H2CO3 Ratio 21:1 ABG pH 7.44 ABG pCO2 51.9 H ABG pO2 55.6 L ABG HCO3 34.3 H ABG O2 Saturation 89.5 L ABG Base Excess 8.5 FiO2 30% Sodium 136.3 L Potassium 4.8 Chloride 95 L Carbon Dioxide 35 H Anion Gap 6 BUN 18 Creatinine 0.62 Est GFR ( Amer) > 60 Est GFR (Non-Af Amer) > 60 Glucose 117 H Calcium 9.3 Magnesium 2.3 Total Bilirubin 0.3 AST 59 H ALT 52 Alkaline Phosphatase 70 Total Protein 6.0 L Albumin 3.7 06/07/17 07:15 Sputum Gram Stain - Final 06/07/17 07:15 Sputum Sputum Culture - Final Haemophilus Influenzae Normal Romina 06/10/17 18:34 Troponin I 1.090 Impressions: Chest X-Ray 06/10/17 00:00 IMPRESSION: STABLE APPEARANCE OF THE CHEST. Assessment & Plan - Diagnosis (1) Carbon dioxide narcosis Is this a current diagnosis for this admission?: Yes Plan: improved (2) Acute respiratory failure with hypoxia Is this a current diagnosis for this admission?: Yes Plan: stable (3) Pneumothorax, right Is this a current diagnosis for this admission?: Yes Plan: water seal no leak noted - Time Total Critical Time (Minutes): 40
[2017-06-10] MEDS: BUDESONIDE NEB 0.5 MG/2 ML AMPUL NEB SCH (20:55)
--- NOTE | 2017-06-10 21:55 | EKG REPORT ---
SEVERITY:- ABNORMAL ECG - SINUS RHYTHM PROBABLE LEFT ATRIAL ABNORMALITY PROBABLE ANTEROSEPTAL INFARCT, AGE INDETERM : Confirmed by: Indra Palmer MD 10-Jun-2017 18:55:18
[2017-06-10] MEDS: TRAZODONE HCL 50 MG TABLET PO SCH (22:09)
[2017-06-10] MEDS: ATORVASTATIN CALCIUM 40 MG TABLET PO SCH (22:09)
[2017-06-11] MEDS: IPRATROPIUM/ALBUTEROL 0.5-2.5 MG/3 ML AMPUL NEB SCH ×6 (00:13→20:21)
[2017-06-11] MEDS: METHYLPREDNISOLONE INJ 125 MG/2 ML SDV IV SCH ×3 (05:08→22:12)
[2017-06-11] MEDS: OXYCODONE HCL IR 5 MG TABLET PO PRN ×3 (05:08→22:09)
[2017-06-11] MEDS: AMOXICILLIN TR/POT CLAVULANATE 500-125 MG TAB PO SCH ×3 (05:08→22:09)
[2017-06-11] MEDS: LANSOPRAZOLE 30 MG TAB.RAP.DR PO SCH (05:08)
[2017-06-11] MEDS: HEPARIN SOD (PORCINE) 5,000 UNIT/ML 1 ML SYRINGE SUBCUT SCH ×3 (05:08→22:12)
[2017-06-11 05:26] LABS: HEMOGLOBIN 13.5 g/dL (12.0-15.5); MEAN CORPUSCULAR HEMOGLOBIN 29.5 pg (27.0-33.4); MEAN CORPUSCULAR VOLUME 89 fl (80-97); PLATELET COUNT 172 10^3/uL (150-450); RED BLOOD COUNT 4.58 10^6/uL (3.72-5.28); RED CELL DISTRIBUTION WIDTH 13.8 % (11.5-14.0); WHITE BLOOD COUNT 8.8 10^3/uL (4.0-10.5)
[2017-06-11 05:52] LABS: ALBUMIN 3.6 g/dL (3.5-5.0); ANION GAP 6 (5-19); BLOOD UREA NITROGEN 18 mg/dL (7-20); CALCIUM 9.2 mg/dL (8.4-10.2); CARBON DIOXIDE 34 mmol/L (22-30); CHLORIDE 96 mmol/L (98-107); GLUCOSE 122 mg/dL (75-110); PHOSPHORUS 4.3 mg/dL (2.5-4.5); POTASSIUM 4.4 mmol/L (3.6-5.0); SODIUM 136.4 mmol/L (137-145)
[2017-06-11] MEDS: BUDESONIDE NEB 0.5 MG/2 ML AMPUL NEB SCH ×2 (07:47→20:20)
[2017-06-11] MEDS ORDERED: BUDESONIDE NEB 0.5 MG/2 ML AMPUL NEB SCH (08:00)
--- NOTE | 2017-06-11 08:55 | RADIOLOGY REPORT (SQ) ---
EXAM DESCRIPTION: CHEST SINGLE VIEW COMPLETED DATE/TIME: 06/11/2017 8:42 am REASON FOR STUDY: right pneumothorax COMPARISON: 06/10/2017. EXAM PARAMETERS: NUMBER OF VIEWS: One view. TECHNIQUE: Single frontal radiographic view of the chest acquired. RADIATION DOSE: NA LIMITATIONS: None. FINDINGS: LUNGS AND PLEURA: No opacities, masses or pneumothorax. Mild scarring in the lung bases. No pleural effusion. MEDIASTINUM AND HILAR STRUCTURES: No masses. Contour normal. HEART AND VASCULAR STRUCTURES: Heart normal in size. Normal vasculature. BONES: No acute findings. HARDWARE: Stable right chest tube. Central line. OTHER: No other significant finding. IMPRESSION: STABLE APPEARANCE OF THE CHEST. NO PNEUMOTHORAX. TECHNICAL DOCUMENTATION: JOB ID: [id number] [employer]- All Rights Reserved Reading location - IP/workstation name: [email or web address]
[2017-06-11] MEDS: ALPRAZOLAM 0.5 MG TABLET PO SCH ×2 (09:50→22:10)
[2017-06-11] MEDS: METHOCARBAMOL 750 MG TABLET PO SCH ×2 (09:51→22:18)
[2017-06-11] MEDS: PREGABALIN 75 MG CAPSULE PO SCH ×2 (09:51→22:11)
[2017-06-11] MEDS: CITALOPRAM HYDROBROMIDE 20 MG TABLET PO SCH (09:51)
[2017-06-11] MEDS: NICOTINE 21 MG/24 HR PATCH.TD24 TD SCH (09:52)
[2017-06-11] MEDS: BENZONATATE 100 MG CAPSULE PO PRN (09:54)
[2017-06-11] MEDS: FENTANYL CITRATE INJ/PF 100 MCG/2 ML AMPUL IV PRN ×2 (10:54→20:29)
--- NOTE | 2017-06-11 14:34 | RADIOLOGY REPORT (SQ) ---
EXAM DESCRIPTION: CHEST SINGLE VIEW COMPLETED DATE/TIME: 06/11/2017 2:00 pm REASON FOR STUDY: chest tube removal COMPARISON: 06/11/2017 at 0832 hours. EXAM PARAMETERS: NUMBER OF VIEWS: One view. TECHNIQUE: Single frontal radiographic view of the chest acquired. RADIATION DOSE: NA LIMITATIONS: None. FINDINGS: LUNGS AND PLEURA: No opacities, masses or pneumothorax. No pleural effusion. MEDIASTINUM AND HILAR STRUCTURES: No masses. Contour normal. HEART AND VASCULAR STRUCTURES: Heart normal in size. Normal vasculature. BONES: No acute findings. HARDWARE: The chest tube has been removed. Central line in place. OTHER: No other significant finding. IMPRESSION: NO PNEUMOTHORAX FOLLOWING CHEST TUBE REMOVAL. TECHNICAL DOCUMENTATION: JOB ID: [id number] [employer]- All Rights Reserved Reading location - IP/workstation name: [email or web address]
--- NOTE | 2017-06-11 14:36 | PDOC PROGRESS REPORT ---
Subjective Progress Note for:: 06/11/17 Subjective:: No new issues. Tolerated clamp trial of chest tube. Reason For Visit: RIGHT PNEUMOTHORAX Physical Exam Vital Signs: Temp Pulse Resp BP Pulse Ox 98.0 F 92 19 123/97 H 94 06/11/17 08:09 06/11/17 11:30 06/11/17 11:30 06/11/17 08:09 06/11/17 11:30 Intake & Output 06/10/17 06/11/17 06/12/17 06:59 06:59 06:59 Intake Total 520 1020 Output Total 780 1800 Balance -260 -780 Weight 76.4 kg 78 kg General appearance: PRESENT: no acute distress Respiratory exam: PRESENT: clear to auscultation immanuel, other - right chest tube clamped Cardiovascular exam: PRESENT: +S1, +S2 GI/Abdominal exam: PRESENT: normal bowel sounds, soft Neurological exam: PRESENT: alert, awake, oriented to person, oriented to place , oriented to time, oriented to situation, CN II-XII grossly intact, motor sensory deficit Results Laboratory Results: 06/11/17 04:05 06/11/17 04:05 06/11/17 06/11/17 04:05 04:05 WBC 8.8 RBC 4.58 Hgb 13.5 Hct 41.0 MCV 89 MCH 29.5 MCHC 33.0 RDW 13.8 Plt Count 172 Sodium 136.4 L Potassium 4.4 Chloride 96 L Carbon Dioxide 34 H Anion Gap 6 BUN 18 Creatinine 0.61 Est GFR ( Amer) > 60 Est GFR (Non-Af Amer) > 60 Glucose 122 H Calcium 9.2 Phosphorus 4.3 Albumin 3.6 06/07/17 07:15 Sputum Gram Stain - Final 06/07/17 07:15 Sputum Sputum Culture - Final Haemophilus Influenzae Normal Romina 06/10/17 18:34 Troponin I 1.090 Impressions: Chest X-Ray 06/11/17 13:25 IMPRESSION: NO PNEUMOTHORAX FOLLOWING CHEST TUBE REMOVAL. Assessment & Plan - Diagnosis (1) Pneumothorax, right Is this a current diagnosis for this admission?: Yes - Plan Summary Plan Summary: The chest tube was removed. Will obtain post removal CXR in 4 hrs.
[2017-06-11] MEDS: AZITHROMYCIN 500 MG in DEXTROSE 5%-WATER 250 ML IV SCH (18:55)
--- NOTE | 2017-06-11 19:37 | PDOC PROGRESS REPORT ---
Subjective Progress Note for:: 06/11/17 Subjective:: Patient stable on BIPAP with improved air movement and decreased wheezing on exam. Surgery removed chest tube today. Her pneumothorax has resolved. Patient has a longstanding hx of anxiety. I spoke with her at the bedside about this. She is continued on her home Xanax. Reason For Visit: RIGHT PNEUMOTHORAX Physical Exam Vital Signs: Temp Pulse Resp BP Pulse Ox 98.4 F 87 18 128/67 H 94 06/11/17 17:03 06/11/17 17:03 06/11/17 17:03 06/11/17 17:03 06/11/17 17:03 Intake & Output 06/10/17 06/11/17 06/12/17 06:59 06:59 06:59 Intake Total 520 1020 494 Output Total 780 1800 600 Balance -260 -780 -106 Weight 76.4 kg 78 kg Respiratory exam: PRESENT: wheezes - wearing BIPAP. ABSENT: accessory muscle use, crackles, rales, rhonchi Cardiovascular exam: PRESENT: RRR, +S1, +S2. ABSENT: diastolic murmur, systolic murmur Pulses: PRESENT: normal radial pulses, normal dorsalis pedis pul Vascular exam: PRESENT: normal capillary refill. ABSENT: pallor GI/Abdominal exam: PRESENT: normal bowel sounds. ABSENT: ascites, distended, mass Extremities exam: ABSENT: calf tenderness, pedal edema Musculoskeletal exam: PRESENT: full ROM. ABSENT: normal inspection Neurological exam: PRESENT: oriented to person, oriented to place, oriented to time, oriented to situation, CN II-XII grossly intact Psychiatric exam: PRESENT: anxious. ABSENT: manic Focused psych exam: ABSENT: catatonic, paranoid, pressured speech Skin exam: ABSENT: dry, pallor, rash Results Laboratory Results: 06/11/17 04:05 06/11/17 04:05 06/11/17 06/11/17 04:05 04:05 WBC 8.8 RBC 4.58 Hgb 13.5 Hct 41.0 MCV 89 MCH 29.5 MCHC 33.0 RDW 13.8 Plt Count 172 Sodium 136.4 L Potassium 4.4 Chloride 96 L Carbon Dioxide 34 H Anion Gap 6 BUN 18 Creatinine 0.61 Est GFR ( Amer) > 60 Est GFR (Non-Af Amer) > 60 Glucose 122 H Calcium 9.2 Phosphorus 4.3 Albumin 3.6 06/07/17 07:15 Sputum Gram Stain - Final 06/07/17 07:15 Sputum Sputum Culture - Final Haemophilus Influenzae Normal Romina 06/10/17 18:34 Troponin I 1.090 Impressions: Chest X-Ray 06/11/17 13:25 IMPRESSION: NO PNEUMOTHORAX FOLLOWING CHEST TUBE REMOVAL. Assessment & Plan - Plan Summary Plan Summary: 1. Pneumothorax resolved chest tube removed by surgery today 2. Acute respiratory failure with hypercapnia. COPD exacerbation. Continue supplemental oxygen as needed, wean as tolerated. continue supportive BIPAP as needed. Continue nebulized medicines, IV steroids. Started her neb budesonide yesterday, improved wheezing on exam today 3. Haemophilus influenza PNA positive on sputum cult Was started on Augmentin PO. Given her ICU/respiratory decline, continue on IV Azithromycin. 4. Diastolic HF. relatively euvolemic 5. Leukocytosis. Secondary to steroids vs. PNA monitor 6. Anxiety: xanax from home 7. Hyperlipidemia on statin
[2017-06-11] MEDS: ATORVASTATIN CALCIUM 40 MG TABLET PO SCH (22:11)
[2017-06-11] MEDS: TRAZODONE HCL 50 MG TABLET PO SCH (22:12)
[2017-06-12] MEDS: IPRATROPIUM/ALBUTEROL 0.5-2.5 MG/3 ML AMPUL NEB SCH ×6 (00:32→19:53)
[2017-06-12] MEDS: FENTANYL CITRATE INJ/PF 100 MCG/2 ML AMPUL IV PRN ×5 (01:32→20:39)
[2017-06-12] MEDS: METHYLPREDNISOLONE INJ 125 MG/2 ML SDV IV SCH ×2 (05:33→13:44)
[2017-06-12] MEDS: LANSOPRAZOLE 30 MG TAB.RAP.DR PO SCH (05:33)
[2017-06-12] MEDS: HEPARIN SOD (PORCINE) 5,000 UNIT/ML 1 ML SYRINGE SUBCUT SCH ×3 (05:33→22:35)
[2017-06-12] MEDS: AMOXICILLIN TR/POT CLAVULANATE 500-125 MG TAB PO SCH ×2 (05:34→13:44)
[2017-06-12] MEDS: OXYCODONE HCL IR 5 MG TABLET PO PRN ×4 (05:34→22:37)
[2017-06-12 05:54] LABS: HEMATOCRIT 39.4 % (36.0-47.0); HEMOGLOBIN 12.9 g/dL (12.0-15.5); MEAN CORPUSCULAR HEMOGLOBIN 29.2 pg (27.0-33.4); MEAN CORPUSCULAR HGB CONC 32.7 g/dL (32.0-36.0); MEAN CORPUSCULAR VOLUME 90 fl (80-97); PLATELET COUNT 172 10^3/uL (150-450); RED CELL DISTRIBUTION WIDTH 13.9 % (11.5-14.0); WHITE BLOOD COUNT 11.7 10^3/uL (4.0-10.5)
[2017-06-12 06:03] LABS: ALBUMIN 3.3 g/dL (3.5-5.0); BLOOD UREA NITROGEN 17 mg/dL (7-20); CALCIUM 8.9 mg/dL (8.4-10.2); GLUCOSE 119 mg/dL (75-110); PHOSPHORUS 4.2 mg/dL (2.5-4.5); POTASSIUM 4.5 mmol/L (3.6-5.0)
[2017-06-12 06:09] LABS: CARBON DIOXIDE 36 mmol/L (22-30); CHLORIDE 98 mmol/L (98-107)
[2017-06-12 06:12] LABS: ANION GAP 3 (5-19)
[2017-06-12] MEDS: ALPRAZOLAM 0.5 MG TABLET PO SCH ×2 (07:22→22:34)
[2017-06-12] MEDS: BENZONATATE 100 MG CAPSULE PO PRN ×2 (07:22→22:35)
[2017-06-12] MEDS: BUDESONIDE NEB 0.5 MG/2 ML AMPUL NEB SCH ×2 (07:48→19:54)
--- NOTE | 2017-06-12 08:52 | RADIOLOGY REPORT (SQ) ---
EXAM DESCRIPTION: CHEST SINGLE VIEW COMPLETED DATE/TIME: 06/12/2017 8:44 am REASON FOR STUDY: right pneumothorax COMPARISON: 06/11/2017. EXAM PARAMETERS: NUMBER OF VIEWS: One view. TECHNIQUE: Single frontal radiographic view of the chest acquired. RADIATION DOSE: NA LIMITATIONS: None. FINDINGS: LUNGS AND PLEURA: Chronic interstitial changes. No focal infiltrates, masses or pneumotho rax. No pleural effusion. MEDIASTINUM AND HILAR STRUCTURES: No masses. Contour normal. HEART AND VASCULAR STRUCTURES: Heart normal in size. Normal vasculature. BONES: No acute findings. HARDWARE: Central line. OTHER: No other significant finding. IMPRESSION: NO PNEUMOTHORAX. NO ACUTE RADIOGRAPHIC FINDING IN THE CHEST. TECHNICAL DOCUMENTATION: JOB ID: [id number] [employer]- All Rights Reserved Reading location - IP/workstation name: [email or web address]
[2017-06-12] MEDS: NICOTINE 21 MG/24 HR PATCH.TD24 TD SCH (10:20)
[2017-06-12] MEDS: METHOCARBAMOL 750 MG TABLET PO SCH ×2 (10:21→22:37)
[2017-06-12] MEDS: CITALOPRAM HYDROBROMIDE 20 MG TABLET PO SCH (10:21)
[2017-06-12] MEDS: PREGABALIN 75 MG CAPSULE PO SCH ×2 (10:21→22:35)
[2017-06-12] MEDS: LORAZEPAM 0.5 MG TABLET PO PRN (11:46)
[2017-06-12] MEDS ORDERED: FENTANYL CITRATE INJ/PF 100 MCG/2 ML AMPUL IV ONE (14:30)
[2017-06-12] MEDS: AZITHROMYCIN 500 MG in DEXTROSE 5%-WATER 250 ML IV SCH (17:57)
--- NOTE | 2017-06-12 18:18 | RADIOLOGY REPORT (SQ) ---
EXAM DESCRIPTION: RIBS LEFT W/PA CHEST COMPLETED DATE/TIME: 06/12/2017 5:47 pm REASON FOR STUDY: left rib pain COMPARISON: 06/12/2017 TECHNIQUE: Frontal view of the chest and additional views of the left ribs acquired. NUMBER OF VIEWS: Three view. LIMITATIONS: None. FINDINGS: FRONTAL CXR: No pneumothorax. No pleural effusion. Improved aeration right lung base. RIBS: No displaced rib fractures. No lytic or blastic bony lesions. OTHER: No other significant finding. IMPRESSION: NO PNEUMOTHORAX. NO DISPLACED RIB FRACTURES. COMMENT: SITE OF TRAUMA/COMPLAINT MARKED/STAMP COMPLETED: NO. TECHNICAL DOCUMENTATION: JOB ID: [id number] [employer]- All Rights Reserved Reading location - IP/workstation name: [email or web address]
--- NOTE | 2017-06-12 20:51 | PDOC PROGRESS REPORT ---
Subjective Progress Note for:: 06/12/17 Subjective:: 57 yo female who presented with significant COPD exacerbation, and H. Flu pneumonia, and developed a pneumothorax after a central line was placed, requiring a chest tube and multiple days on BIPAP to recover. Patient on NC O2 today, with decreased wheezing on exam. She was in better spirits and overall improving. Will start to wean her IV steroids. Will anticipate a prolonged PO steroid taper at discharge, at least 2 weeks. Patient has been continued on Augmentin and Azithromycin with good recovery. Leukocytosis likely secondary to steroids at present. Has been coughing, and complained of chest pain, which was reproducible on exam. Checking rib xray today, reading was without rib fractures. Treating with pain medicines Reason For Visit: RIGHT PNEUMOTHORAX Physical Exam Vital Signs: Temp Pulse Resp BP Pulse Ox 98.9 F 78 16 127/76 H 95 06/12/17 15:48 06/12/17 15:48 06/12/17 15:48 06/12/17 15:48 06/12/17 15:48 Intake & Output 06/11/17 06/12/17 06/13/17 06:59 06:59 06:59 Intake Total 1020 1676 1238 Output Total 1800 1400 1300 Balance -780 276 -62 Weight 78 kg 77.6 kg General appearance: PRESENT: no acute distress, cooperative Head exam: PRESENT: atraumatic, normocephalic Eye exam: PRESENT: EOMI, PERRLA. ABSENT: conjunctiva pink Mouth exam: PRESENT: moist, neck supple, tongue midline Neck exam: PRESENT: full ROM. ABSENT: JVD, tenderness, thyromegaly Respiratory exam: PRESENT: wheezes. ABSENT: accessory muscle use, crackles, rales, rhonchi Cardiovascular exam: PRESENT: RRR, +S1, +S2. ABSENT: diastolic murmur, systolic murmur Pulses: PRESENT: normal radial pulses, normal dorsalis pedis pul Vascular exam: PRESENT: normal capillary refill. ABSENT: pallor GI/Abdominal exam: ABSENT: distended, firm, mass, Trivedi's sign, rigid, soft Extremities exam: ABSENT: joint swelling, tenderness Musculoskeletal exam: PRESENT: full ROM. ABSENT: tenderness Neurological exam: PRESENT: alert, oriented to person, oriented to place, oriented to time, CN II-XII grossly intact Psychiatric exam: ABSENT: agitated, anxious, manic Focused psych exam: ABSENT: delusional, paranoid Skin exam: ABSENT: dry, erythema Results Laboratory Results: 06/12/17 05:30 06/12/17 05:30 06/12/17 06/12/17 05:30 05:30 WBC 11.7 H RBC 4.40 Hgb 12.9 Hct 39.4 MCV 90 MCH 29.2 MCHC 32.7 RDW 13.9 Plt Count 172 Sodium 137.0 Potassium 4.5 Chloride 98 Carbon Dioxide 36 H Anion Gap 3 L BUN 17 Creatinine 0.62 Est GFR ( Amer) > 60 Est GFR (Non-Af Amer) > 60 Glucose 119 H Calcium 8.9 Phosphorus 4.2 Albumin 3.3 L 06/10/17 18:34 Troponin I 1.090 Impressions: Ribs w/Chest X-Ray 06/12/17 00:00 IMPRESSION: NO PNEUMOTHORAX. NO DISPLACED RIB FRACTURES. Chest X-Ray 06/12/17 06:00 IMPRESSION: NO PNEUMOTHORAX. NO ACUTE RADIOGRAPHIC FINDING IN THE CHEST. Assessment & Plan - Plan Summary Plan Summary: 1. Pneumothorax resolved chest tube removed by surgery on 06/11/17 2. Acute respiratory failure with hypercapnia. COPD exacerbation. Continue supplemental oxygen as needed, wean as tolerated. Continue nebulized medicines, IV steroids. Started her neb budesonide yesterday, improved wheezing on exam today weaning IV steroids today. 3. Haemophilus influenza PNA positive on sputum cult Was started on Augmentin PO. Given her ICU/respiratory decline, continued her on IV Azithromycin. has continued to improve. 4. Diastolic HF. relatively euvolemic restart home lasix 20mg daily 5. Leukocytosis. Secondary to steroids vs. PNA monitor 6. Anxiety: xanax from home 7. Hyperlipidemia on statin 8. Rib pain. no fractures on xray muscle strain from coughing, reproducible on exam prn pain medications.
[2017-06-12] MEDS ORDERED: FUROSEMIDE 20 MG TABLET PO ONE (21:30)
[2017-06-12] MEDS: METHYLPREDNISOLONE INJ 40 MG/1 ML SDV IV SCH (22:32)
[2017-06-12] MEDS: TRAZODONE HCL 50 MG TABLET PO SCH (22:35)
[2017-06-12] MEDS: ATORVASTATIN CALCIUM 40 MG TABLET PO SCH (22:36)
[2017-06-13] MEDS: IPRATROPIUM/ALBUTEROL 0.5-2.5 MG/3 ML AMPUL NEB SCH ×6 (00:01→20:20)
[2017-06-13] MEDS: FENTANYL CITRATE INJ/PF 100 MCG/2 ML AMPUL IV PRN ×5 (01:24→18:10)
[2017-06-13] MEDS: LORAZEPAM 0.5 MG TABLET PO PRN (02:54)
[2017-06-13] MEDS: LANSOPRAZOLE 30 MG TAB.RAP.DR PO SCH (05:25)
[2017-06-13] MEDS: HEPARIN SOD (PORCINE) 5,000 UNIT/ML 1 ML SYRINGE SUBCUT SCH ×3 (05:25→21:36)
[2017-06-13] MEDS: METHYLPREDNISOLONE INJ 40 MG/1 ML SDV IV SCH ×3 (05:25→21:39)
[2017-06-13 06:56] LABS: HEMATOCRIT 39.5 % (36.0-47.0); HEMOGLOBIN 12.8 g/dL (12.0-15.5); MEAN CORPUSCULAR HGB CONC 32.5 g/dL (32.0-36.0); MEAN CORPUSCULAR VOLUME 89 fl (80-97); PLATELET COUNT 186 10^3/uL (150-450); RED BLOOD COUNT 4.43 10^6/uL (3.72-5.28); RED CELL DISTRIBUTION WIDTH 13.7 % (11.5-14.0)
[2017-06-13 07:30] LABS: ALBUMIN 3.4 g/dL (3.5-5.0); BLOOD UREA NITROGEN 20 mg/dL (7-20); CHLORIDE 96 mmol/L (98-107); GLUCOSE 109 mg/dL (75-110); PHOSPHORUS 3.7 mg/dL (2.5-4.5); POTASSIUM 4.3 mmol/L (3.6-5.0)
[2017-06-13 07:35] LABS: CARBON DIOXIDE 37 mmol/L (22-30); SODIUM 136.4 mmol/L (137-145)
[2017-06-13 07:41] LABS: ANION GAP 3 (5-19)
[2017-06-13] MEDS: ALPRAZOLAM 0.5 MG TABLET PO SCH ×2 (07:59→21:42)
[2017-06-13] MEDS: BENZONATATE 100 MG CAPSULE PO PRN (07:59)
[2017-06-13] MEDS: BUDESONIDE NEB 0.5 MG/2 ML AMPUL NEB SCH ×2 (08:02→20:20)
--- NOTE | 2017-06-13 08:57 | RADIOLOGY REPORT (SQ) ---
EXAM DESCRIPTION: CHEST SINGLE VIEW COMPLETED DATE/TIME: 06/13/2017 7:57 am REASON FOR STUDY: right pneumothorax COMPARISON: 06/12/2017 EXAM PARAMETERS: NUMBER OF VIEWS: One view. TECHNIQUE: Single frontal radiographic view of the chest acquired. RADIATION DOSE: NA LIMITATIONS: None. FINDINGS: LUNGS AND PLEURA: No opacities, masses or pneumothorax. No pleural effusion. MEDIASTINUM AND HILAR STRUCTURES: No masses. Contour normal. HEART AND VASCULAR STRUCTURES: Heart normal in size. Normal vasculature. BONES: No acute findings. HARDWARE: None in the chest. OTHER: Unchanged position of right-sided central line. IMPRESSION: No pneumothorax. TECHNICAL DOCUMENTATION: JOB ID: [id number] [employer]- All Rights Reserved Reading location - IP/workstation name: [email or web address]
[2017-06-13] MEDS: OXYCODONE HCL IR 5 MG TABLET PO PRN ×3 (09:37→21:47)
[2017-06-13] MEDS: METHOCARBAMOL 750 MG TABLET PO SCH ×2 (10:27→21:38)
[2017-06-13] MEDS: FUROSEMIDE 20 MG TABLET PO SCH (10:27)
[2017-06-13] MEDS: CITALOPRAM HYDROBROMIDE 20 MG TABLET PO SCH (10:28)
[2017-06-13] MEDS: NICOTINE 21 MG/24 HR PATCH.TD24 TD SCH (10:29)
[2017-06-13] MEDS: PREGABALIN 75 MG CAPSULE PO SCH ×2 (10:29→21:35)
--- NOTE | 2017-06-13 13:25 | PDOC PROGRESS REPORT ---
Subjective Progress Note for:: 06/13/17 Subjective:: The patient was disturbed this morning because she did not receive her morning dose of oxycodone on time. She is still slightly more short of breath than her baseline. She is also complaining of a persistent and productive cough. This is worse than her baseline. Reason For Visit: RIGHT PNEUMOTHORAX Physical Exam Vital Signs: Temp Pulse Resp BP Pulse Ox 97.7 F 82 23 H 120/69 92 06/13/17 11:18 06/13/17 12:18 06/13/17 12:18 06/13/17 11:18 06/13/17 12:18 Intake & Output 06/12/17 06/13/17 06/14/17 06:59 06:59 06:59 Intake Total 1676 2528 512 Output Total 1400 2200 700 Balance 276 328 -188 Weight 77.6 kg 78.1 kg Additional comments: The patient appears older than her stated age. She appears to be in chronically poor health. However, her mentation and cognition are appropriate. Her lungs demonstrate diffuse and bilateral wheezing in all lung taylor. Her cardiac exam is distant but appears to be regular. I do not appreciate any murmurs, gallops or rubs. The abdomen is minimally distended. The abdomen is without guarding or rebound noted. There are no hernias or masses present. The lower extremities are warm to touch without any pitting edema. The skin is clean, warm, dry and intact without lesions or rashes. Results Laboratory Results: 06/13/17 05:25 06/13/17 05:25 06/13/17 06/13/17 05:25 05:25 WBC 13.0 H RBC 4.43 Hgb 12.8 Hct 39.5 MCV 89 MCH 29.0 MCHC 32.5 RDW 13.7 Plt Count 186 Sodium 136.4 L Potassium 4.3 Chloride 96 L Carbon Dioxide 37 H Anion Gap 3 L BUN 20 Creatinine 0.65 Est GFR ( Amer) > 60 Est GFR (Non-Af Amer) > 60 Glucose 109 Calcium 9.0 Phosphorus 3.7 Albumin 3.4 L 06/10/17 18:34 Troponin I 1.090 Impressions: Ribs w/Chest X-Ray 06/12/17 00:00 IMPRESSION: NO PNEUMOTHORAX. NO DISPLACED RIB FRACTURES. Chest X-Ray 06/13/17 06:00 IMPRESSION: No pneumothorax. Assessment & Plan - Diagnosis (1) COPD exacerbation Is this a current diagnosis for this admission?: Yes Plan: Currently, continue IV steroids and bronchodilators. She is not yet stable for transition to oral steroids. (2) Acute and chronic respiratory failure with hypercapnia Is this a current diagnosis for this admission?: Yes Plan: The patient is clinically stable w/o need for non-invasive or invasive ventilation at present. (3) Acute and chronic respiratory failure with hypoxia Is this a current diagnosis for this admission?: Yes Plan: Patient is currently on 4 liters of oxygen. Her baseline is 2 liters. We will wean as tolerated. (4) Rib pain Is this a current diagnosis for this admission?: Yes (5) Opioid dependence Is this a current diagnosis for this admission?: Yes Plan: We will continue her routine use of opioid medications. At this point in time I have not identified a reason to escalate her therapy. (6) Anxiety Is this a current diagnosis for this admission?: Yes Plan: Continue home dose of Xanax. (7) DVT prophylaxis Is this a current diagnosis for this admission?: Yes Plan: Continue current dose of subcu heparin (8) Hyperlipidemia Is this a current diagnosis for this admission?: Yes Plan: Continue atorvastatin (9) Leukocytosis Is this a current diagnosis for this admission?: Yes Plan: Likely due to corticosteroids. (10) Pneumothorax, right Is this a current diagnosis for this admission?: Yes Plan: Chest tube was removed on 06/11/2017. Chest x-ray from today is stable. No pneumothorax was seen. (11) PNA (pneumonia) Is this a current diagnosis for this admission?: Yes Plan: Continue IV azithromycin (12) Diastolic CHF Qualifiers: Heart failure chronicity: chronic Qualified Code(s): I50.32 - Chronic diastolic (congestive) heart failure Is this a current diagnosis for this admission?: Yes Plan: Continue home dose of Lasix. - Time Time Spent with patient: 25-34 minutes - Inpatient Certification Medical Necessity: Significant Comorbidiites Make Outpatient Treatment Too Risky , Need Close Monitoring Due to Risk of Patient Decompensation, Need for Nebulizer Therapy and Monitoring of Response, Risk of Complication if Not Cared For in Hospital
[2017-06-13] MEDS: AZITHROMYCIN 500 MG in DEXTROSE 5%-WATER 250 ML IV SCH (18:10)
[2017-06-13] MEDS: ATORVASTATIN CALCIUM 40 MG TABLET PO SCH (21:36)
[2017-06-13] MEDS: TRAZODONE HCL 50 MG TABLET PO SCH (21:37)
[2017-06-14] MEDS: FENTANYL CITRATE INJ/PF 100 MCG/2 ML AMPUL IV PRN ×3 (00:14→13:01)
[2017-06-14] MEDS: IPRATROPIUM/ALBUTEROL 0.5-2.5 MG/3 ML AMPUL NEB SCH ×6 (00:37→20:43)
[2017-06-14] MEDS: OXYCODONE HCL IR 5 MG TABLET PO PRN ×4 (02:11→20:33)
[2017-06-14] MEDS: METHYLPREDNISOLONE INJ 40 MG/1 ML SDV IV SCH (05:41)
[2017-06-14] MEDS: LANSOPRAZOLE 30 MG TAB.RAP.DR PO SCH (05:41)
[2017-06-14] MEDS: HEPARIN SOD (PORCINE) 5,000 UNIT/ML 1 ML SYRINGE SUBCUT SCH ×3 (05:43→21:44)
[2017-06-14] MEDS: ALPRAZOLAM 0.5 MG TABLET PO SCH ×2 (07:26→21:42)
[2017-06-14] MEDS: BUDESONIDE NEB 0.5 MG/2 ML AMPUL NEB SCH ×2 (08:26→20:43)
[2017-06-14] MEDS: METHOCARBAMOL 750 MG TABLET PO SCH ×2 (09:07→21:42)
[2017-06-14] MEDS: CITALOPRAM HYDROBROMIDE 20 MG TABLET PO SCH (09:08)
[2017-06-14] MEDS: FUROSEMIDE 20 MG TABLET PO SCH (09:08)
[2017-06-14] MEDS: PREGABALIN 75 MG CAPSULE PO SCH (09:08)
[2017-06-14] MEDS: NICOTINE 21 MG/24 HR PATCH.TD24 TD SCH (09:09)
--- NOTE | 2017-06-14 14:12 | PDOC PROGRESS REPORT ---
Subjective Progress Note for:: 06/14/17 Subjective:: Patient is admitted with acute on chronic hypoxic/hypercarbic respiratory failure due to COPD with exacerbation. Her hospitalization has been complicated by pneumothorax. Reason For Visit: RIGHT PNEUMOTHORAX Physical Exam Vital Signs: Temp Pulse Resp BP Pulse Ox 98.4 F 83 17 122/67 94 06/14/17 11:52 06/14/17 11:52 06/14/17 11:52 06/14/17 11:52 06/14/17 11:52 Intake & Output 06/13/17 06/14/17 06/15/17 06:59 06:59 06:59 Intake Total 2528 1979 237 Output Total 2200 2600 600 Balance 134 -250 -576 Weight 78.1 kg 78 kg Additional comments: Patient was in better spirits today. She looks less tachypneic. Her cognition and mentation are normal. Her facial appearance is normal. Her lungs actually sound much better today. She has decreased wheezing and better air excursion throughout. Her cardiac exam is regular without murmurs, gallops rubs. The abdomen is minimally distended. There is no guarding or rebound and there are no hernias or masses present. The lower extremities are warm to touch. No pitting edema is present. Skin is clean, warm, dry and intact. No lesions or rashes are present. Results Laboratory Results: 06/13/17 05:25 06/13/17 05:25 06/10/17 18:34 Troponin I 1.090 Impressions: Ribs w/Chest X-Ray 06/12/17 00:00 IMPRESSION: NO PNEUMOTHORAX. NO DISPLACED RIB FRACTURES. Chest X-Ray 06/13/17 06:00 IMPRESSION: No pneumothorax. Assessment & Plan - Diagnosis (1) COPD exacerbation Is this a current diagnosis for this admission?: Yes Plan: Today, she is improved. She will be switched to oral steroids. (2) Acute and chronic respiratory failure with hypercapnia Is this a current diagnosis for this admission?: Yes Plan: Improved clinically (3) Acute and chronic respiratory failure with hypoxia Is this a current diagnosis for this admission?: Yes Plan: Oxygen has been weaned to 2 L (4) Rib pain Is this a current diagnosis for this admission?: Yes Plan: Resolving (5) Opioid dependence Is this a current diagnosis for this admission?: Yes Plan: We will continue her routine use of opioid medications. At this point in time I have not identified a reason to escalate her therapy. (6) Anxiety Is this a current diagnosis for this admission?: Yes Plan: Continue home dose of Xanax. (7) DVT prophylaxis Is this a current diagnosis for this admission?: Yes Plan: Continue current dose of subcu heparin (8) Hyperlipidemia Is this a current diagnosis for this admission?: Yes Plan: Continue atorvastatin (9) Leukocytosis Is this a current diagnosis for this admission?: Yes Plan: Likely due to corticosteroids. Will need labs checked after discharge. (10) Pneumothorax, right Is this a current diagnosis for this admission?: Yes Plan: Chest tube was removed on 06/11/2017. Chest x-ray from yesterday is negative for pneumothorax. (11) PNA (pneumonia) Is this a current diagnosis for this admission?: Yes Plan: Continue IV azithromycin until discharge (12) Diastolic CHF Qualifiers: Heart failure chronicity: chronic Qualified Code(s): I50.32 - Chronic diastolic (congestive) heart failure Is this a current diagnosis for this admission?: Yes Plan: Continue home dose of Lasix. (13) Tobacco abuse Is this a current diagnosis for this admission?: Yes Plan: Nicotine patch was discontinued today at patient's request. She has having bad dreams. I told her this could also be a prednisone. In any event, she is probably pharmacologically detoxed. Smoking cessation counseling was provided. - Time Time Spent with patient: 15-24 minutes - Inpatient Certification Medical Necessity: Need for IV Antibiotics - Plan Summary Plan Summary: I anticipate discharge within the next 24-48 hours
[2017-06-14] MEDS: PREDNISONE 20 MG TABLET PO SCH (18:14)
[2017-06-14] MEDS: AZITHROMYCIN 500 MG in DEXTROSE 5%-WATER 250 ML IV SCH (18:14)
[2017-06-14] MEDS ORDERED: ZOLPIDEM TARTRATE 5 MG TABLET PO PRN (18:37)
[2017-06-14] MEDS: TRAZODONE HCL 50 MG TABLET PO SCH (21:43)
[2017-06-14] MEDS: ATORVASTATIN CALCIUM 40 MG TABLET PO SCH (21:44)
[2017-06-15] MEDS: PREGABALIN 75 MG CAPSULE PO SCH ×2 (00:12→10:28)
[2017-06-15] MEDS: IPRATROPIUM/ALBUTEROL 0.5-2.5 MG/3 ML AMPUL NEB SCH ×4 (00:23→11:24)
[2017-06-15] MEDS: OXYCODONE HCL IR 5 MG TABLET PO PRN ×2 (02:48→08:28)
[2017-06-15] MEDS: LANSOPRAZOLE 30 MG TAB.RAP.DR PO SCH (05:37)
[2017-06-15] MEDS: HEPARIN SOD (PORCINE) 5,000 UNIT/ML 1 ML SYRINGE SUBCUT SCH (05:38)
[2017-06-15] MEDS: BUDESONIDE NEB 0.5 MG/2 ML AMPUL NEB SCH (07:57)
[2017-06-15] MEDS: FUROSEMIDE 20 MG TABLET PO SCH (10:23)
[2017-06-15] MEDS: ALPRAZOLAM 0.5 MG TABLET PO SCH (10:25)
[2017-06-15] MEDS: PREDNISONE 20 MG TABLET PO SCH (10:27)
[2017-06-15] MEDS: CITALOPRAM HYDROBROMIDE 20 MG TABLET PO SCH (10:27)
[2017-06-15] MEDS: METHOCARBAMOL 750 MG TABLET PO SCH (10:28)
--- NOTE | 2017-06-15 10:57 | PDOC DISCHARGE SUMMARY ---
General - Admit/Disc Date/PCP Admission Date/Primary Care Provider: 06/05/17 16:54 Discharge Date: 06/15/17 - Discharge Diagnosis (1) COPD exacerbation Is this a current diagnosis for this admission?: Yes (2) Acute and chronic respiratory failure with hypercapnia Is this a current diagnosis for this admission?: Yes (3) Acute and chronic respiratory failure with hypoxia Is this a current diagnosis for this admission?: Yes (4) Rib pain Is this a current diagnosis for this admission?: Yes (5) Opioid dependence Is this a current diagnosis for this admission?: Yes (6) Anxiety Is this a current diagnosis for this admission?: Yes (7) DVT prophylaxis Is this a current diagnosis for this admission?: Yes (8) Hyperlipidemia Is this a current diagnosis for this admission?: Yes (9) Leukocytosis Is this a current diagnosis for this admission?: Yes (10) Pneumothorax, right Is this a current diagnosis for this admission?: Yes (11) PNA (pneumonia) Is this a current diagnosis for this admission?: Yes (12) Diastolic CHF Is this a current diagnosis for this admission?: Yes (13) Tobacco abuse Is this a current diagnosis for this admission?: Yes (14) Metabolic alkalosis Is this a current diagnosis for this admission?: Yes - Additional Information Resuscitation Status: Full Code Discharge Diet: Regular Discharge Activity: Activity As Tolerated, Balance Activity w/Rest Prescriptions: Benzonatate [Tessalon Perles 100 mg Capsule] 200 mg PO Q8HP PRN #30 capsule PRN Reason: Budesonide [Pulmicort Neb 0.5 mg/2 ml Ampul] 0.5 mg NEB RTBID 30 Days #60 ampul.neb Ipratropium/Albuterol Sulfate [Duoneb 3 ml Ampul] 3 ml NEB Q6HP PRN 30 Days # 120 vial.neb PRN Reason: Omeprazole 20 mg PO DAILY 30 Days #30 tablet. Prednisone [Deltasone 20 mg Tablet] 20 mg PO BID 14 Days #14 tablet Home Medications: Alprazolam [Xanax] 1 mg PO QAM 06/05/17 Alprazolam [Xanax] 2 mg PO QHS 06/05/17 Atorvastatin Calcium [Lipitor 40 mg Tablet] 40 mg PO QHS 06/05/17 Citalopram Hydrobromide [Celexa 20 mg Tablet] 20 mg PO DAILY 06/05/17 Furosemide [Lasix 20 mg Tablet] 20 mg PO DAILYP PRN 06/05/17 Methocarbamol [Robaxin 750 mg Tablet] 750 mg PO Q12 06/05/17 Oxycodone HCl 15 mg PO Q6HP PRN 06/05/17 Pregabalin [Lyrica] 150 mg PO Q12 06/05/17 Trazodone HCl [Desyrel] 150 mg PO QHS 06/05/17 Zolpidem Tartrate [Ambien] 10 mg PO QHS 06/05/17 Benzonatate [Tessalon Perles 100 mg Capsule] 200 mg PO Q8HP PRN #30 capsule Budesonide [Pulmicort Neb 0.5 mg/2 ml Ampul] 0.5 mg NEB RTBID 30 Days #60 ampul.neb 06/15/17 Ipratropium/Albuterol Sulfate [Duoneb 3 ml Ampul] 3 ml NEB Q6HP PRN 30 Days # 120 vial.leah 06/15/17 Omeprazole 20 mg PO DAILY 30 Days #30 tablet. 06/15/17 Prednisone [Deltasone 20 mg Tablet] 20 mg PO BID 14 Days #14 tablet 06/15/17 History of Present Illness History of Present Illness: KEELEY GALEANO is a 57 year old female presents to the hospital with complaint of shortness of breath for 2 days. Patient states this morning her breathing worsened. Patient states she does have productive cough which is clear. Patient reports that a few days ago she had a skin biopsy done and was placed on Keflex twice a day. Patient states she started antibiotics yesterday. Patient reports that she still is actively smoking. Hospital Course Hospital Course: The patient was admitted to the hospital with acute on chronic hypoxic and hypercarbic respiratory failure. The patient appears to have underlying COPD and she presented with an exacerbation. She was treated with intravenous corticosteroids and IV azithromycin as well as bronchodilator therapy. The patient was switched to oral therapy on 06/14/2017. Dr. Pike of pulmonary medicine was consulted and recommended the addition of inhaled budesonide. Her hospitalization was complicated by an iatrogenic pneumothorax that occurred after placement of a central line on 06/09/17. A chest tube was placed. The chest tube was removed on 06/11/2017 and the patient's follow-up chest x-ray has been normal. At this point in time the patient feels that she is back to her baseline. She is requesting to be discharged. She was actually requesting to be discharged yesterday, but she was still receiving intravenous therapies and she did not appear to be back to her baseline. During this hospitalization she was receiving 4 L of oxygen by nasal cannula. This was weaned to 2 L yesterday. The patient is doing well on 2 L of oxygen which she uses at home. Upon discharge she will need to be followed up in 1 week with a primary care doctor and in 1-[address] Pike of pulmonary medicine. The patient uses chronic opioids and sedatives. This is for chronic pain from fibromyalgia. She has been counseled on the risks of respiratory insufficiency associated with these medications. She is also been counseled on her tobacco abuse. The patient was noted to have a mild leukocytosis during this hospitalization. This is attributed corticosteroids. She is also developed a metabolic alkalosis which can also be attributed to her corticosteroids. Physical Exam Vital Signs: Temp Pulse Resp BP Pulse Ox 98.3 F 74 18 124/94 H 96 06/15/17 07:51 06/15/17 07:57 06/15/17 07:57 06/15/17 07:51 06/15/17 07:57 Intake & Output 06/14/17 06/15/17 06/16/17 06:59 06:59 06:59 Intake Total 1979 772 Output Total 2600 950 Balance -621 -178 Weight 78 kg 78.5 kg Additional comments: The patient does appear to be stable this morning. She is mildly tachypneic with conversation but her respiratory rate is approximately 14-16. When she is at rest respiratory rate is approximately 10-12. Her facial appearance is unremarkable. Her lungs do demonstrate scattered wheezes in the posterior lung taylor, but, in general her lung sounds are much improved over the last 48 hours. She has better air excursion and decreased wheezing throughout. Her cardiac exam demonstrates a regular rate and rhythm without murmurs, gallops or rubs. The abdomen is soft and flat. Bowel sounds are noted in the lower quadrants. Her lower extremities are unremarkable. She does not have any edema present. The skin is clean, warm dry and intact without lesions or rashes. Results Laboratory Results: 06/13/17 05:25 06/13/17 05:25 06/10/17 18:34 Troponin I 1.090 Impressions: Ribs w/Chest X-Ray 06/12/17 00:00 IMPRESSION: NO PNEUMOTHORAX. NO DISPLACED RIB FRACTURES. Chest X-Ray 06/13/17 06:00 IMPRESSION: No pneumothorax. Qualifiers - * PATEINT BEING DISCHARGED WITH ANY OF THE FOLLOWING DIAGNOSIS?: No Plan Discharge Plan: 1. Discharged home 2. Discharge diet is regular without concentrated sweets 3. Follow-up with primary daycare worker in 1 week 4. Follow-up with Dr. Pike of pulmonary medicine in 1-2 weeks Time Spent: Greater than 30 Minutes
[2017-06-15 11:34] VITALS: BP 125/84
--- NOTE | 2017-06-21 19:14 | PDOC PROGRESS REPORT ---
Subjective Progress Note for:: 06/11/17 Subjective:: my chest is sore Reason For Visit: RIGHT PNEUMOTHORAX Physical Exam Vital Signs: Temp Pulse Resp BP Pulse Ox 98.3 F 74 18 125/84 96 06/15/17 11:31 06/15/17 11:31 06/15/17 11:31 06/15/17 11:31 06/15/17 11:31 Intake & Output 06/14/17 06/15/17 06/16/17 06:59 06:59 06:59 Intake Total 1979 772 Output Total 2600 950 Balance -621 -178 Weight 78 kg 78.5 kg General appearance: PRESENT: no acute distress, cooperative, disheveled Head exam: PRESENT: atraumatic, normocephalic Eye exam: PRESENT: conjunctiva pale, EOMI Mouth exam: PRESENT: moist, neck supple, tongue midline Neck exam: ABSENT: carotid bruit, JVD, lymphadenopathy, thyromegaly, tracheal deviation, tracheostomy Respiratory exam: PRESENT: decreased breath sounds, prolonged expiratory phas, rales, rhonchi, symmetrical, unlabored. ABSENT: retraction, stridor, tachypnea Cardiovascular exam: PRESENT: RRR, +S1, +S2 Pulses: PRESENT: normal radial pulses GI/Abdominal exam: PRESENT: diminished bowel sounds, soft Extremities exam: ABSENT: clubbing, joint swelling Musculoskeletal exam: ABSENT: deformity, dislocation Neurological exam: PRESENT: awake Skin exam: PRESENT: dry, warm Results Laboratory Results: 06/13/17 05:25 06/13/17 05:25 06/10/17 18:34 Troponin I 1.090 Impressions: Ribs w/Chest X-Ray 06/12/17 00:00 IMPRESSION: NO PNEUMOTHORAX. NO DISPLACED RIB FRACTURES. Chest X-Ray 06/13/17 06:00 IMPRESSION: No pneumothorax. Assessment & Plan - Diagnosis (1) Carbon dioxide narcosis Is this a current diagnosis for this admission?: Yes Plan: improved (2) Acute respiratory failure with hypoxia Is this a current diagnosis for this admission?: Yes Plan: stable (3) Pneumothorax, right Is this a current diagnosis for this admission?: Yes Plan: water seal no leak noted (4) COPD exacerbation Is this a current diagnosis for this admission?: Yes Plan: laaaaaaaaba/lama/iccs
--- NOTE | 2017-06-21 19:15 | PDOC PROGRESS REPORT ---
Subjective Progress Note for:: 06/12/17 Subjective:: my chest is sore Reason For Visit: RIGHT PNEUMOTHORAX Physical Exam Vital Signs: Temp Pulse Resp BP Pulse Ox 98.3 F 74 18 125/84 96 06/15/17 11:31 06/15/17 11:31 06/15/17 11:31 06/15/17 11:31 06/15/17 11:31 Intake & Output 06/14/17 06/15/17 06/16/17 06:59 06:59 06:59 Intake Total 1979 772 Output Total 2600 950 Balance -621 -178 Weight 78 kg 78.5 kg General appearance: PRESENT: no acute distress, cooperative Head exam: PRESENT: atraumatic, normocephalic Eye exam: PRESENT: conjunctiva pale, EOMI Mouth exam: PRESENT: moist, neck supple Neck exam: ABSENT: carotid bruit, JVD, lymphadenopathy, thyromegaly, tracheal deviation, tracheostomy Respiratory exam: PRESENT: decreased breath sounds, prolonged expiratory phas, rales, rhonchi, symmetrical, unlabored Cardiovascular exam: PRESENT: RRR, +S1, +S2 Pulses: PRESENT: normal radial pulses GI/Abdominal exam: PRESENT: diminished bowel sounds, soft Extremities exam: ABSENT: clubbing, joint swelling Musculoskeletal exam: ABSENT: deformity, dislocation Neurological exam: PRESENT: awake Skin exam: PRESENT: dry, warm Results Laboratory Results: 06/13/17 05:25 06/13/17 05:25 06/10/17 18:34 Troponin I 1.090 Impressions: Ribs w/Chest X-Ray 06/12/17 00:00 IMPRESSION: NO PNEUMOTHORAX. NO DISPLACED RIB FRACTURES. Chest X-Ray 06/13/17 06:00 IMPRESSION: No pneumothorax. Assessment & Plan - Diagnosis (1) Carbon dioxide narcosis Is this a current diagnosis for this admission?: Yes Plan: improved (2) Acute respiratory failure with hypoxia Is this a current diagnosis for this admission?: Yes Plan: stable (3) Pneumothorax, right Is this a current diagnosis for this admission?: Yes Plan: water seal no leak noted (4) COPD exacerbation Is this a current diagnosis for this admission?: Yes Plan: laaaaaaaaba/lama/iccs
--- NOTE | 2017-06-21 19:16 | PDOC PROGRESS REPORT ---
Subjective Progress Note for:: 06/15/17 Subjective:: my chest is sore Reason For Visit: RIGHT PNEUMOTHORAX Physical Exam Vital Signs: Temp Pulse Resp BP Pulse Ox 98.3 F 74 18 125/84 96 06/15/17 11:31 06/15/17 11:31 06/15/17 11:31 06/15/17 11:31 06/15/17 11:31 Intake & Output 06/14/17 06/15/17 06/16/17 06:59 06:59 06:59 Intake Total 1979 772 Output Total 2600 950 Balance -621 -178 Weight 78 kg 78.5 kg General appearance: PRESENT: no acute distress, cooperative, disheveled Head exam: PRESENT: atraumatic, normocephalic Eye exam: PRESENT: conjunctiva pale, EOMI Mouth exam: PRESENT: moist, neck supple, tongue midline Neck exam: ABSENT: carotid bruit, JVD, lymphadenopathy, thyromegaly, tracheal deviation, tracheostomy Respiratory exam: PRESENT: decreased breath sounds, prolonged expiratory phas, rhonchi, symmetrical, unlabored. ABSENT: stridor, tachypnea Cardiovascular exam: PRESENT: RRR, +S1, +S2 Pulses: PRESENT: normal radial pulses GI/Abdominal exam: PRESENT: diminished bowel sounds, soft Extremities exam: ABSENT: clubbing, joint swelling Musculoskeletal exam: ABSENT: deformity, dislocation Neurological exam: PRESENT: awake Skin exam: PRESENT: dry, warm Results Laboratory Results: 06/13/17 05:25 06/13/17 05:25 06/10/17 18:34 Troponin I 1.090 Impressions: Ribs w/Chest X-Ray 06/12/17 00:00 IMPRESSION: NO PNEUMOTHORAX. NO DISPLACED RIB FRACTURES. Chest X-Ray 06/13/17 06:00 IMPRESSION: No pneumothorax. Assessment & Plan - Diagnosis (1) Carbon dioxide narcosis Is this a current diagnosis for this admission?: Yes Plan: improved (2) Acute respiratory failure with hypoxia Is this a current diagnosis for this admission?: Yes Plan: stable (3) Pneumothorax, right Is this a current diagnosis for this admission?: Yes Plan: water seal no leak noted (4) COPD exacerbation Is this a current diagnosis for this admission?: Yes Plan: laaaaaaaaba/lama/iccs
== END 2017-06-15 12:08 | disposition home or self-care (01) | DRG 189 ==
LOC: ER 15:51 → EH 16:54 → 5 06-06 00:45 → 3N 06-09 01:26 → ICU 06-09 10:14 → 3W 06-10 21:30
PROVIDERS: ADMIT Emergency Medicine; ATTEND Emergency Medicine
PROC: 5A09457 Assistance with Respiratory Ventilation, 24-96 Consecutive Hours, Continuous Positive Airway Pressure (ICD-10-PCS; 2017-06-07)
PROC: 02HV33Z Insertion of Infusion Device into Superior Vena Cava, Percutaneous Approach (ICD-10-PCS; 2017-06-08)
PROC: 0W9900Z Drainage of Right Pleural Cavity with Drainage Device, Open Approach (ICD-10-PCS; principal; 2017-06-09)
DX: J96.22 Acute and chronic respiratory failure with hypercapnia (principal); J18.9 Pneumonia, unspecified organism; J44.1 Chronic obstructive pulmonary disease with (acute) exacerbation; I50.30 Unspecified diastolic (congestive) heart failure; E87.3 Alkalosis; F11.20 Opioid dependence, uncomplicated; I11.0 Hypertensive heart disease with heart failure; J95.811 Postprocedural pneumothorax; J96.21 Acute and chronic respiratory failure with hypoxia; F41.9 Anxiety disorder, unspecified; E78.5 Hyperlipidemia, unspecified; R07.81 Pleurodynia; M79.7 Fibromyalgia; I25.10 Atherosclerotic heart disease of native coronary artery without angina pectoris; K21.9 Gastro-esophageal reflux disease without esophagitis; Z79.899 Other long term (current) drug therapy; Z90.710 Acquired absence of both cervix and uterus; F17.200 Nicotine dependence, unspecified, uncomplicated; Z88.1 Allergy status to other antibiotic agents
CPT/HCPCS: 36415; 36600; 71045; 80048; 80053; 80069; 81001; 82803; 83735; 84484; 85025; 85027; 87070; 87077; 87205; 93005; 93010; 94660; 99285; C1751; J0456; J1630; J1644; J2060; J2920; J2930; J3010; J3475; J3490; J7060; J7512; J7620

== ENCOUNTER 2018-11-09 10:48 | Observation (INO) | payer BC, MEDICARE ==
--- NOTE | 2018-11-09 11:07 | ER Document Report ---
ED Neuro Symptoms/Deficit - General Stated Complaint: POSSIBLE STROKE Time Seen by Provider: 11/09/18 10:55 Notes: 58-year-old female with a history of stroke and TIA presents to the ER after episode of confusion and left-sided weakness. The patient was talking on the phone and began slurring her speech and acting funny family immediately called the neighbor to come check on the patient. They found the patient to be drooling with left-sided facial weakness and left arm and leg weakness. 911 was called upon arrival in the house #1 did appreciate left facial droop and arm weakness. As a load of the patient and started coming toward the ER the patient's symptoms have rapidly improved and resolved. The patient is still little confused but she answers orientation questions and states her left-sided numbness tingling weakness is resolved. Patient denies any chest pain shortness of breath or fever chills cough or sore throat. TRAVEL OUTSIDE OF THE [place] IN LAST 30 DAYS: No - Related Data Allergies/Adverse Reactions: levofloxacin [From EZ4U] Adverse Reaction (Verified 06/24/15 11:57) redness to face Past Medical History - Social History Smoking Status: Unknown if Ever Smoked Family History: Reviewed & Not Pertinent - Past Medical History Cardiac Medical History: Reports: Hx Congestive Heart Failure, Hx Coronary Artery Disease, Hx Hypertension Pulmonary Medical History: Reports: Hx Asthma, Hx COPD Neurological Medical History: Reports: Hx Cerebrovascular Accident Renal/ Medical History: Denies: Hx Peritoneal Dialysis GI Medical History: Reports: Hx Gastroesophageal Reflux Disease Musculoskeletal Medical History: Reports Hx Fibromyalgia Psychiatric Medical History: Reports: Hx Depression Past Surgical History: Reports: Hx Adenoidectomy, Hx Hysterectomy, Hx Tonsi llectomy, Hx Vascular Surgery - Right-sided carotid endarterectomy - Immunizations Hx Pneumococcal Vaccination: 03/30/11 Review of Systems - Review of Systems Constitutional: No symptoms reported EENT: No symptoms reported Gastrointestinal: No symptoms reported Genitourinary: No symptoms reported Female Genitourinary: No symptoms reported Musculoskeletal: No symptoms reported Neurological/Psychological: Confusion, Sensory change, Weakness, Speech impairment, Numbness, Tingling. denies: Headaches -: Yes All other systems reviewed and negative Physical Exam - Notes Notes: GENERAL_APPEARANCE: well_nourished, alert, cooperative VITALS: reviewed, see vital signs table. HEAD: no_swelling\\tenderness on the head. EYES: PERRL, EOMI, conjunctiva_clear. NOSE: no_nasal_discharge. MOUTH: (-)decreased moisture. THROAT: no_tonsilar_inflammation, no_airway_obstruction. no_lymphadenopathy NECK: supple, no_neck_tenderness, (-)thyromegaly. BACK: no_back_tenderness. CHEST_WALL: no_chest_tenderness. LUNGS: no_wheezing, no_rales, no_rhonchi, (-)accessory muscle use, good air exchange bilateral. HEART: normal_rate, normal_rhythm, normal_S1, normal_S2, (-)S3, (-)S4, no_murmur, no_rub. ABDOMEN: normal_BS, soft, no_abd_tenderness, (-)guarding, (-)rebound, no_organomegaly, no_abd_masses. EXTREMITIES: good pulses in all_extremities, no_swelling\\tenderness in the extremities, no_edema. SKIN: warm, dry, good_color, no_rash. MENTAL_STATUS: speech_clear, oriented_X_3, oriented_affect, responds_appropriately to questions. NEURO: Neg Motor or Sensory Deficits on exam, CN 2-12 intact, DTR 2+ symmetric x 4, No cerbellar signs Course - Re-evaluation Re-evalutation: 11/09/18 11:05 58-year-old female presents to the ER after an acute episode of confusion left facial droop left-sided weakness that started at 9:45 AM. EMS was able to appreciate the left-sided deficits however on the way in the patient is rapidly improved and now is symptom-free she states she only feels a little bit confused but can answer all orientation questions her NIH stroke scale was 0. She has a history of CVA and left-sided deficits before CT shows old infarcts one on the left which does not correlate with her symptoms. 11/09/18 11:13 Patient is not a candidate for TPA due pleat resolution of symptoms. 11/09/18 13:10 Patient still symptom-free. She is speaking a lot better. states she still a little mixed up on a few things but tremendously better. I gave the patient a full-strength aspirin I will give the patient blood pressure medicine her blood pressures been running a little high. I have spoken with the hospitalist service to bring the patient in for stroke work-up MRI. 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 She was not a candidate for TPA also due to the Xarelto. - Laboratory Result Diagrams: 11/09/18 10:23 11/09/18 10:23 - Diagnostic Test Radiology reviewed: Reports reviewed Radiology results interpreted by me: 11/09/18 11:[address] 11/09/18 10:52 IMPRESSION: No evidence of intracranial hemorrhage. Subtle area of hypoattenuation involving the left frontoparietal subcortical white matter may represent age-indeterminate lacunar infarct versus microangiopathic change. No mass effect or midline shift. If high clinical concern MRI could be considered for more definitive characterization. EVIDENCE OF ACUTE STROKE: Age indeterminate left frontoparietal white matter change Pertinent positive or negative findings of the imaging study reported as a CRITICAL EXAM to JIE GROSS MD at11:05 on 11/09/2018. Category of Critical Exam: Code stroke - EKG Interpretation by Me EKG shows normal: Sinus rhythm Rate: Normal Rhythm: NSR ED NIH Stroke Scale - NIH Stroke Scale *: 1. NIH scale should be completed with appropriate accompanying assessment tools. *: 2. The NIH should reflect what the patient is capable of doing and should not be coached by the clinician. 1a. Level of Consciousness: 0=Alert;keenly responsive -: 1=Drowsy -: 2=Obtunded -: 3=Coma/unresponsive or reflex to noxious stimuli. 1a. Responses: 0 1b. Orientation Questions: a. What month is it? -: b. How old are you? -: 0=Answers both questions correctly. -: 1=Answers one question correctly or patient is intubated or has orotracheal trauma. -: 2=Answers neither question correctly. 1b. Responses: 0 1c. Response to commands: a. Open and close eyes? -: b. Msws and release hand? -: Credit is given despite weakness. Demonstration of task is permitted. Substitute command if hands cannot be used. -: 0=Performs both tasks correctly -: 1=Performs one task correctly -: 2=Performs neither task correctly 1c. Responses: 0 2. Gaze: Establish eye contact and instruct patient to "Follow my finger" -: 0=Normal -: 1=Partial gaze palsy. Gaze is abnormal in one or both eyes, but where forced deviation or total gaze paresis is not present. -: 2=Forced deviation or total gaze paresis. 2. Responses: 0 3. Visual Tadeo: Sees fingers in all four quadrants. -: 0=No visual loss. -: 1=Partial hemianopsia. -: 2=Complete hemianopsia. -: 3=Bilateral hemianopsia (including Cortical blindness) 3. Responses: 0 4. Facial Movement: Instruct patient to: -: a. Show me your teeth -: b. Raise your eyebrows -: c. Close your eyes -: d. Smile -: 0=Normal symmetrical movement -: 1=Minor paralysis (flattened nasolabial fold, asymmetry on smiling). -: 2=Partial paralysis (total or near total paralysis of lower face). -: 3=Complete paralysis of upper and lower face 4. Responses: 0 5. Motor functions (left arm): Alternate sides and extend each arm with palms down (90 degrees if sitting or 45 degrees for supine). -: 0=No drift;limb holds for full 10 seconds. -: 1=Drift; limb holds but drifts down before full 10 seconds, but does not hit bed. -: 2=Some effort against gravity; limb cannot get to or maintain position. -: 3=No effort against gravity; limb falls. -: 4=No movement. -: UN=Amputation, joint fusion, explain in comments. 5. Responses (left arm): 0 5. Motor Functions (right arm): Alternate sides and extend each arm with palms down (90 degrees if sitting or 45 degrees for supine). -: 0=No drift;limb holds for full 10 seconds. -: 1=Drift; limb holds but drifts down before full 10 seconds, but does not hit bed. -: 2=Some effort against gravity; limb cannot get to or maintain position. -: 3=No effort against gravity; limb falls. -: 4=No movement. -: UN=Amputation, joint fusion, explain in comments. 5. Responses (right arm): 0 6. Motor Functions (left leg): With patient lying supine, alternate sides and extend each leg (30 degrees always while supine). -: 0=No drift, leg holds position for full 5 seconds -: 1=Drift; leg falls before full 5 seconds but does not hit bed. -: 2=Some effort against gravity, leg falls to bed but some effort against gravity. -: 3=No effort against gravity, leg falls to bed immediately. -: 4=No movement. -: UN=Amputation, joint fusion; explain in comments. 6. Responses (left leg): 0 6. Motor Functions (right leg): With patient lying supine, alternate sides and extend each leg (30 degrees always while supine). -: 0=No drift, leg holds position for full 5 seconds -: 1=Drift; leg falls before full 5 seconds but does not hit bed. -: 2=Some effort against gravity, leg falls to bed but some effort against gravity. -: 3=No effort against gravity, leg falls to bed immediately. -: 4=No movement. -: UN=Amputation, joint fusion; explain in comments. 6. Responses (right leg): 0 7. Limb Ataxia: With eyes open instruct patient to: -: a. "Touch your finger to your nose". -: b. "Touch your heel to your bar" -: 0=Absent -: 1=Present in one limb. -: 2=Present in two limbs. -: UN=Amputation or joint fusion; explain in comments. 7. Responses: 0 8. Sensory: Test sensation using pinprick or noxious stimuli. Test as many body parts as possible. -: 0=Normal;no sensory loss -: 1=Mile to moderate sensory loss (patient feels pin prick but is less sharp on affected side). -: 2=Severe or total sensory loss. 8. Responses: 0 9. Best Language: Instruct patient to: -: a. "Describe what you see in this picture." -: b. "Name the items in this picture." -: c. "Read these sentences." -: 0=No aphasia, normal -: 1=Mild to moderate aphasia. -: 2=Severe aphasia -: 3=Mute, global aphasia, no usable speech or auditory comprehension. 9. Responses: 0 10. Articulation, Dysarthia: Instruct patient to: -: "Read these words" or "Repeat these words" -: 0=Normal -: 1=Mild to moderate; patient may slur some words but can be understood without difficulty. -: 2=Severe; patients speech so slurred as to be unintelligible in the absence of dysphasia. -: UN=Intubated or other physical barrier, explain in comments. 10. Responses: 0 11. Extinction or inattention: 0=No abnormality -: 1= Visual, tactile, auditory, spatial, or personal inattention or extinction to bilateral simulation in one or the sensory modalities. -: 2=Profound carly-inattention or carly-inattention to more than one modality; does not recognize own hand. Total Score: 0 Discharge - Discharge Clinical Impression: CVA (cerebral vascular accident) Qualifiers: CVA mechanism: unspecified Qualified Code(s): I63.9 - Cerebral infarction, unspecified Condition: Good Disposition: ADMITTED INPATIENT Admitting Provider: Adryan (Hospitalist) Unit Admitted: Telemetry
--- NOTE | 2018-11-09 11:12 | RADIOLOGY REPORT (SQ) ---
EXAM DESCRIPTION: CT HEAD WITHOUT COMPLETED DATE/TIME: 11/09/2018 10:57 am REASON FOR STUDY: stroke protocol COMPARISON: None. TECHNIQUE: Axial images acquired through the brain without intravenous contrast. Images reviewed wi th bone, brain and subdural windows. Additional sagittal and coronal reconstructions were generated. Images stored on PACS. All CT scanners at this facility use dose modulation, iterative reconstruction, and/or weight based d osing when appropriate to reduce radiation dose to as low as reasonably achievable (ALARA). [facility]: Dose Right [facility]: CareDose [facility]: Dose Right [facility]: Teradose 4D [facility]: [email or web address] RADIATION DOSE: mGy. LIMITATIONS: None. FINDINGS: VENTRICLES: Normal size and contour. CEREBRUM: No masses. No hemorrhage. No midline shift. Subtle area of hypoattenuation involving the left frontoparietal subcortical white matter. No other evidence of large vascular territory infarct . Hernandez-white differentiation is preserved. CEREBELLUM: No masses. No hemorrhage. No alteration of density. No evidence for acute infarction. EXTRAAXIAL SPACES: No fluid collections. No masses. ORBITS AND GLOBE: No intra- or extraconal masses. Normal contour of globe without masses. CALVARIUM: No fracture. PARANASAL SINUSES: No fluid or mucosal thickening. SOFT TISSUES: No mass or hematoma. OTHER: No other significant finding. IMPRESSION: No evidence of intracranial hemorrhage. Subtle area of hypoattenuation involving the le ft frontoparietal subcortical white matter may represent age-indeterminate lacunar infarct versus marilyn roangiopathic change. No mass effect or midline shift. If high clinical concern MRI could be consid ered for more definitive characterization. EVIDENCE OF ACUTE STROKE: Age indeterminate left frontoparietal white matter change Pertinent positive or negative findings of the imaging study reported as a CRITICAL EXAM to JIE GROSS MD at11:05 on 11/09/2018. Category of Critical Exam: Code stroke COMMENT: Quality ID # [id number]: Final reports with documentation of one or more dose reduction techniques (e.g., Automated exposure control, adjustment of the mA and/or kV according to patient size, use of iterative reconstruction technique) TECHNICAL DOCUMENTATION: JOB ID: [id number] [employer]- All Rights Reserved Reading location - IP/workstation name: [email or web address]
[2018-11-09] MEDS ORDERED: ASPIRIN 81 MG TABLET, CHEWABLE PO ONE (11:13)
[2018-11-09 11:16] LABS: ABSOLUTE BASOPHILS # (AUTO) 0.1 10^3/uL (0.0-0.2); ABSOLUTE LYMPHOCYTES (AUTO) 1.3 10^3/uL (0.5-4.7); ABSOLUTE MONOCYTES (AUTO) 0.6 10^3/uL (0.1-1.4); ABSOLUTE NEUT (AUTO) 9.3 10^3/uL (1.7-8.2); BASOPHILS % (AUTO) 0.9 % (0-2); EOSINOPHILS % (AUTO) 0.3 % (0-6); HEMATOCRIT 47.9 % (36.0-47.0); HEMOGLOBIN 15.9 g/dL (12.0-15.5); LYMPHOCYTES % (AUTO) 11.8 % (13-45); MEAN CORPUSCULAR HEMOGLOBIN 28.8 pg (27.0-33.4); MEAN CORPUSCULAR HGB CONC 33.1 g/dL (32.0-36.0); MEAN CORPUSCULAR VOLUME 87 fl (80-97); MONOCYTES % (AUTO) 4.9 % (3-13); PLATELET COUNT 238 10^3/uL (150-450); RED CELL DISTRIBUTION WIDTH 14.8 % (11.5-14.0); SEGMENTED NEUTROPHILS % (AUTO) 82.1 % (42-78); TOTAL CELLS COUNTED % (AUTO) 100 %; WHITE BLOOD COUNT 11.3 10^3/uL (4.0-10.5)
[2018-11-09 11:20] LABS: INTERNATIONAL RATION (INR) 1.38
[2018-11-09 11:24] LABS: PROTHROMBIN TIME 17.1 SEC (11.4-15.4)
--- NOTE | 2018-11-09 11:33 | RADIOLOGY REPORT (SQ) ---
EXAM DESCRIPTION: CHEST SINGLE VIEW COMPLETED DATE/TIME: 11/09/2018 11:13 am REASON FOR STUDY: stroke protocol COMPARISON: 06/24/2015 EXAM PARAMETERS: NUMBER OF VIEWS: One view. TECHNIQUE: Single frontal radiographic view of the chest acquired. RADIATION DOSE: NA LIMITATIONS: None. FINDINGS: LUNGS AND PLEURA: No opacities, masses or pneumothorax. No pleural effusion. MEDIASTINUM AND HILAR STRUCTURES: No masses. Contour normal. HEART AND VASCULAR STRUCTURES: Heart normal in size. Aortic atherosclerosis. BONES: No acute findings. HARDWARE: None in the chest. OTHER: No other significant finding. IMPRESSION: NO ACUTE RADIOGRAPHIC FINDING IN THE CHEST. TECHNICAL DOCUMENTATION: JOB ID: [id number] [employer]- All Rights Reserved Reading location - IP/workstation name: [email or web address]
[2018-11-09 11:40] LABS: ALBUMIN 4.6 g/dL (3.5-5.0); ALKALINE PHOSPHATASE 93 U/L (38-126); ANION GAP 15 (5-19); ASPARTATE AMINO TRANSFERASE 36 U/L (14-36); BILIRUBIN,DIRECT 0.3 mg/dL (0.0-0.4); BILIRUBIN,TOTAL 0.8 mg/dL (0.2-1.3); BLOOD UREA NITROGEN 10 mg/dL (7-20); CALCIUM 10.1 mg/dL (8.4-10.2); CARBON DIOXIDE 24 mmol/L (22-30); CHLORIDE 99 mmol/L (98-107); CREATINE KINASE 315 U/L (30-135); GLUCOSE 113 mg/dL (75-110); POTASSIUM 3.7 mmol/L (3.6-5.0); TOTAL PROTEIN 7.8 g/dL (6.3-8.2)
[2018-11-09 11:52] LABS: CREATINE KINASE MB 1.57 ng/mL (<4.55); TROPONIN I < 0.012 ng/mL
[2018-11-09] MEDS ORDERED: NIFEDIPINE 10 MG CAPSULE PO ONE (12:53)
[2018-11-09] MEDS ORDERED: LABETALOL HCL INJ 20 MG/4 ML DISP.SYRIN IV ONE (12:54)
[2018-11-09] MEDS ORDERED: IPRATROPIUM/ALBUTEROL 0.5-2.5 MG/3 ML AMPUL NEB ONE (13:11)
[2018-11-09] MEDS ORDERED: ONDANSETRON HCL INJ/PF 4 MG/2 ML SDV IV PRN (13:11)
[2018-11-09] MEDS ORDERED: ACETAMINOPHEN 325 MG TABLET PO PRN (13:11)
--- NOTE | 2018-11-09 13:56 | PDOC H&P ---
History of Present Illness Admission Date/PCP: 11/09/18 13:23 Patient complains of: Confusion with the left-sided weakness from this morning History of Present Illness: KEELEY GALEANO is a 58 year old female history of TIA, stroke, congestive heart failure, coronary artery disease, gastric further reflux disease, asthma, COPD, chronic smoker complaining of left-sided weakness confusion this morning EMS was called symptoms are persisting at that time she was brought to the emergency room symptoms are completely resolved as per the ER physician. The 2 x 5 my examination patient is complaining of pain under the left breast Pain scale is 5/10. Patient complains of headaches this morning no headaches now. Denies any nausea vomiting dizziness. She has a history of previous tia work-up in the ER negative for acute stroke. CT head was negative. Plans to do MRI and carotid Doppler and admitted as observation. Past Medical History Cardiac Medical History: Reports: Congestive Heart Failure, Coronary Artery Disease, Hypertension Pulmonary Medical History: Reports: Asthma, Chronic Obstructive Pulmonary Disease (COPD) GI Medical History: Reports: Gastroesophageal Reflux Disease Musculoskeltal Medical History: Reports: Fibromyalgia Psychiatric Medical History: Reports: Depression Past Surgical History Past Surgical History: Reports: Adenoidectomy, Hysterectomy, Tonsillectomy, Vascular Surgery - Right-sided carotid endarterectomy Social History Information Source: Patient Smoking Status: Unknown if Ever Smoked Frequency of Alcohol Use: None Hx Recreational Drug Use: No Drugs: None Hx Prescription Drug Abuse: No - Advance Directive Resuscitation Status: Full Code Family History Family History: Reviewed & Not Pertinent Parental Family History Reviewed: Yes - Mother with history of strokes and f ather has history of heart disease. Children Family History Reviewed: Yes Sibling(s) Family History Reviewed.: Yes Medication/Allergy Allergies/Adverse Reactions: levofloxacin [From Levaquin] Adverse Reaction (Verified 06/24/15 11:57) redness to face Review of Systems Constitutional: PRESENT: fatigue, weakness. ABSENT: fever(s) Ears: ABSENT: hearing changes Nose, Mouth, and Throat: ABSENT: sore throat Cardiovascular: ABSENT: dyspnea on exertion, orthropnea, palpitations Respiratory: ABSENT: hemoptysis Gastrointestinal: PRESENT: abdominal pain. ABSENT: diarrhea, nausea, vomiting Genitourinary: ABSENT: dysuria, hematuria Musculoskeletal: ABSENT: joint swelling Neurological: PRESENT: confusion, dizziness, weakness Psychiatric: ABSENT: anxiety, depression, homidical ideation, suicidal ideation Endocrine: ABSENT: cold intolerance, heat intolerance, polydipsia, polyuria Physical Exam Vital Signs: Temp Pulse Resp BP Pulse Ox 98.7 F 86 19 198/108 H 97 11/09/18 11:10 11/09/18 11:10 11/09/18 12:16 11/09/18 12:16 11/09/18 12:16 Intake & Output 11/08/18 11/09/18 11/10/18 06:59 06:59 06:59 Weight 78.5 kg General appearance: PRESENT: no acute distress, cooperative, mild distress Head exam: PRESENT: normocephalic Eye exam: PRESENT: PERRLA Ear exam: PRESENT: normal external ear exam Mouth exam: PRESENT: dry mucosa Teeth exam: PRESENT: poor dentation Neck exam: ABSENT: carotid bruit, JVD, lymphadenopathy, thyromegaly Respiratory exam: PRESENT: decreased breath sounds Cardiovascular exam: PRESENT: RRR. ABSENT: diastolic murmur, rubs, systolic murmur GI/Abdominal exam: PRESENT: normal bowel sounds. ABSENT: ascites Rectal exam: PRESENT: deferred Extremities exam: PRESENT: full ROM. ABSENT: calf tenderness, clubbing, pedal edema Neurological exam: PRESENT: alert, awake, oriented to person, oriented to place, oriented to time, oriented to situation, CN II-XII grossly intact. ABSENT: motor sensory deficit Psychiatric exam: PRESENT: appropriate affect, normal mood. ABSENT: homicidal ideation, suicidal ideation Results Laboratory Results: 11/09/18 10:23 11/09/18 10:23 11/09/18 11/09/18 10:23 10:23 WBC 11.3 H RBC 5.50 H Hgb 15.9 H Hct 47.9 H MCV 87 MCH 28.8 MCHC 33.1 RDW 14.8 H Plt Count 238 Seg Neutrophils % 82.1 H Lymphocytes % 11.8 L Monocytes % 4.9 Eosinophils % 0.3 Basophils % 0.9 Absolute Neutrophils 9.3 H Absolute Lymphocytes 1.3 Absolute Monocytes 0.6 Absolute Eosinophils 0.0 Absolute Basophils 0.1 Sodium 138.1 Potassium 3.7 Chloride 99 Carbon Dioxide 24 Anion Gap 15 BUN 10 Creatinine 0.62 Est GFR ( Amer) > 60 Est GFR (Non-Af Amer) > 60 Glucose 113 H Calcium 10.1 Total Bilirubin 0.8 AST 36 Alkaline Phosphatase 93 Total Protein 7.8 Albumin 4.6 11/09/18 11/09/18 10:23 10:23 Creatine Kinase 315 H CK-MB (CK-2) 1.57 Troponin I < 0.012 Impressions: Chest X-Ray 11/09/18 10:52 IMPRESSION: NO ACUTE RADIOGRAPHIC FINDING IN THE CHEST. Head CT 11/09/18 10:52 IMPRESSION: No evidence of intracranial hemorrhage. Subtle area of hypoattenuation involving the left frontoparietal subcortical white matter may represent age-indeterminate lacunar infarct versus microangiopathic change. No mass effect or midline shift. If high clinical concern MRI could be considered for more definitive characterization. EVIDENCE OF ACUTE STROKE: Age indeterminate left frontoparietal white matter change Pertinent positive or negative findings of the imaging study reported as a CRITICAL EXAM to JIE GROSS MD at11:05 on 11/09/2018. Category of Critical Exam: Code stroke Assessment and Plan - Diagnosis (2) CVA (cerebral vascular accident) Qualifiers: CVA mechanism: unspecified Qualified Code(s): I63.9 - Cerebral infarction, unspecified Is this a current diagnosis for this admission?: Yes Plan: 11/09/2018-patient is going to be admitted to [facility] to rule out stroke. Stroke core measures are implemented. GI prophylaxis DVT prophylaxis initiated. MRI of the brain and carotid Doppler will be done. Start aspirin and Lovenox. Lipid panel was requested. Patient is already on atorvastatin. Aspiration soft fall seizure precautions are requested. (3) Tobacco abuse Is this a current diagnosis for this admission?: Yes Plan: 11/09/2018-patient is a chronic daily smoker smoking for more than 40 years. Smoking counseling was provided more than 20 minutes strongly to quit smoking. Offered nicotine patches. (4) CHF (congestive heart failure) Qualifiers: Qualified Code(s): I50.43 - Acute on chronic combined systolic (congestive) and diastolic (congestive) heart failure Is this a current diagnosis for this admission?: Yes Plan: 11/09/2018-patient has history of congestive heart failure not in fluid overload. Based on the lab findings she might have a chronic systolic heart failure.
[2018-11-09] MEDS ORDERED: OXYCODONE-ACETAMINOPHEN 5-325 MG TABLET PO PRN (14:28)
--- NOTE | 2018-11-09 16:00 | RADIOLOGY REPORT (SQ) ---
EXAM DESCRIPTION: KUB/ABDOMEN (SINGLE VIEW) COMPLETED DATE/TIME: 11/09/2018 3:07 pm REASON FOR STUDY: abd pain COMPARISON: None. NUMBER OF VIEWS: One view. TECHNIQUE: Supine radiographic image of the abdomen acquired. LIMITATIONS: None. FINDINGS: BOWEL GAS PATTERN: Normal bowel gas pattern. No dilated loops. CALCIFICATIONS: No suspicious calcifications. SOFT TISSUES: No gross mass or suggestion of organomegaly. HARDWARE: None in the abdomen. BONES: Evidence of prior T10 kyphoplasty. OTHER: No other significant finding. IMPRESSION: NO RADIOGRAPHIC EVIDENCE FOR ACUTE ABDOMINAL DISEASE. TECHNICAL DOCUMENTATION: JOB ID: [id number] [employer]- All Rights Reserved Reading location - IP/workstation name: [email or web address]
[2018-11-09 16:06] VITALS: BP 115/77
[2018-11-09 16:39] LABS: CREATINE KINASE MB 1.38 ng/mL (<4.55); TROPONIN I 0.027 ng/mL
[2018-11-09] MEDS ORDERED: PANTOPRAZOLE SODIUM 40 MG TABLET.DR PO SCH (17:00)
--- NOTE | 2018-11-09 17:43 | RADIOLOGY REPORT (SQ) ---
EXAM DESCRIPTION: CAROTID DOPPLER COMPLETED DATE/TIME: 11/09/2018 5:35 pm REASON FOR STUDY: stroke COMPARISON: None. TECHNIQUE: Grayscale ultrasound, Doppler velocity and spectra, and color Doppler images acquired of the extra-cranial carotid and vertebral arteries. Images stored on PACS. LIMITATIONS: None. FINDINGS: RIGHT CAROTID CCA Velocities: Within normal limits. ICA Velocities Peak systolic 58 cm/s. End diastolic 19 cm/s. Proximal ICA/CCA peak systolic ratio 1. There is a small amount soft plaque in the carotid bulb and proximal ICA. LEFT CAROTID CCA Velocities: Within normal limits. ICA Velocities Peak systolic 77 cm/s. End diastolic 21 cm/s. Proximal ICA/CCA peak systolic ratio 1. There is a small amount soft plaque in the carotid bulb and proximal ICA. VERTEBRAL ARTERIES: Antegrade flow. Normal waveforms. SUBCLAVIAN ARTERIES: No finding. OTHER: No other significant finding. IMPRESSION: NO HEMODYNAMICALLY SIGNIFICANT STENOSIS. COMMENT: Quality ID #[id number]: Velocity criteria are extrapolated from the diameter data as defined by t he Society of Radiologists in Ultrasound Consensus Conference. Radiology 2003: 229; 340-346. TECHNICAL DOCUMENTATION: JOB ID: [id number] [employer]- All Rights Reserved Reading location - IP/workstation name: [email or web address]
--- NOTE | 2018-11-09 19:11 | RADIOLOGY REPORT (SQ) ---
EXAM DESCRIPTION: MRI HEAD WITHOUT COMPLETED DATE/TIME: 11/09/2018 6:12 pm REASON FOR STUDY: stroke COMPARISON: CT 11/09/2018. Carotid Doppler 11/09/2018. TECHNIQUE: Multiplanar imaging includes non-contrasted T1, T2, FLAIR, and diffusion with ADC map seq uences. Images stored on PACS. LIMITATIONS: None. FINDINGS: ANATOMY: No anomalies. Normal vascular flow voids. Pituitary fossa normal. CSF SPACES: Normal in size and contour. No hemorrhage. CEREBRUM: Sulci and gyri normal in size and contour. There is increased cortical and white matter si gnal on FLAIR imaging, predominantly in the superior cortex, sparing the frontal lobes. No evidence of hemorrhage, mass, or extraaxial fluid collection. POSTERIOR FOSSA: No signal alteration. No hemorrhage. No edema, masses or mass effect. Internal itzel tory canals, cerebello-pontine angles, mastoids normal. DIFFUSION IMAGING: Negative for acute or sub-acute infarction. ORBITS: No masses. Globes normal. PARANASAL SINUSES: No fluid levels. Mucosa normal. OTHER: No other significant finding. IMPRESSION: There is considerable increased signal on FLAIR imaging as described. Etiology uncertai n. It is there history compatible with encephalitis? There is no evidence of acute frontal infarcti on. EVIDENCE OF ACUTE STROKE: NO. COMMENT: Attempted unsuccessfully to contact the ordering physician. TECHNICAL DOCUMENTATION: JOB ID: [id number] [employer]- All Rights Reserved Reading location - IP/workstation name: [email or web address]
[2018-11-09] MEDS ORDERED: ALBUTEROL SULFATE 0.083% NEB 2.5 MG/3 ML AMPUL NEB SCH (20:00)
[2018-11-09] MEDS ORDERED: BENZONATATE 100 MG CAPSULE PO PRN (20:01)
[2018-11-09] MEDS ORDERED: (PENDING PHARMACY ID) (Melatonin [Melatonin] 10 MG) PO SCH (22:00)
[2018-11-09] MEDS ORDERED: (PENDING PHARMACY ID) (Zolpidem Tartrate [Ambien] 10 MG) PO SCH (22:00)
[2018-11-09] MEDS ORDERED: PREGABALIN 75 MG CAPSULE PO SCH (22:00)
[2018-11-09] MEDS ORDERED: TRAZODONE HCL 50 MG TABLET PO SCH (22:00)
[2018-11-09] MEDS ORDERED: ZOLPIDEM TARTRATE 5 MG TABLET PO SCH (22:00)
[2018-11-09] MEDS ORDERED: ALPRAZOLAM 0.5 MG TABLET PO SCH (22:00)
[2018-11-09] MEDS ORDERED: (PENDING PHARMACY ID) (Trazodone Hcl [Desyrel] 300 MG) PO SCH (22:00)
[2018-11-09] MEDS ORDERED: MELATONIN 5 MG TABLET PO SCH (22:00)
[2018-11-09] MEDS ORDERED: METHOCARBAMOL 750 MG TABLET PO SCH (22:00)
[2018-11-10] MEDS ORDERED: OXYCODONE HCL IR 5 MG TABLET PO SCH
[2018-11-10] MEDS ORDERED: ENOXAPARIN SODIUM INJ 40 MG/0.4 ML DISP.SYRIN SUBCUT SCH (10:00)
[2018-11-10] MEDS ORDERED: RIVAROXABAN 10 MG TABLET PO SCH (10:00)
[2018-11-10] MEDS ORDERED: POTASSIUM GLUCONATE 99 MG PO SCH (10:00)
[2018-11-10] MEDS ORDERED: ASPIRIN 325 MG TABLET PO SCH (10:00)
--- NOTE | 2018-11-10 14:40 | EKG REPORT ---
SEVERITY:- BORDERLINE ECG - SINUS RHYTHM BORDERLINE PROLONGED QT INTERVAL : Confirmed by: Isabela Stein 10-Nov-2018 14:39:30
--- NOTE | 2018-11-16 13:59 | Left Against Medical Advice ---
Against Medical Advice Admission Date/Time: 11/09/18 13:23 Primary Care Provider: Date of Patient Emigration: 11/09/18 - Diagnosis: (1) Transient ischemic attack (TIA) Is this a current diagnosis for this admission?: Yes (2) CVA (cerebral vascular accident) Is this a current diagnosis for this admission?: No (3) Tobacco abuse Is this a current diagnosis for this admission?: Yes (4) CHF (congestive heart failure) Is this a current diagnosis for this admission?: Yes - Summary: Summary: Please see Admission and Progress Notes as well. KEELEY GALEANO is a 58 F, who LEFT AGAINST MEDICAL ADVICE. The Patient was admitted on 11/09/18 13:23. 11/16/2018-patient signed AMA on 11/09/2018 she was admitted 46-year-old old stroke she has also history of chronic tobacco use and congestive heart failure left the hospital without signing AMA. The nurse forest fire prevention manager the day and the hospitalist forest fire prevention manager tried to convince her to stay according to my knowledge they tried their best to help her to stay in the hospital patient verbalized response understood the risks of leaving the hospital still left the hospital without signing AMA.
== END 2018-11-09 21:34 | disposition left against medical advice (07) ==
LOC: ER 10:48 → INTOOBSV 13:23 → EH 13:23 → 3N 15:42
PROVIDERS: ADMIT Internal Medicine; ATTEND Internal Medicine
DX: G45.9 Transient cerebral ischemic attack, unspecified (principal); I11.0 Hypertensive heart disease with heart failure; I50.43 Acute on chronic combined systolic (congestive) and diastolic (congestive) heart failure; I25.10 Atherosclerotic heart disease of native coronary artery without angina pectoris; R51 Headache; R10.9 Unspecified abdominal pain; F17.200 Nicotine dependence, unspecified, uncomplicated; Z82.3 Family history of stroke; Z86.73 Personal history of transient ischemic attack (TIA), and cerebral infarction without residual deficits; Z82.49 Family history of ischemic heart disease and other diseases of the circulatory system; Z79.899 Other long term (current) drug therapy; R29.700 NIHSS score 0; Z86.718 Personal history of other venous thrombosis and embolism; Z79.01 Long term (current) use of anticoagulants
CPT/HCPCS: 93005; 99285; 36415; 82553; 82550; 85025; 85610; 85730; 80053; 84484; 93880; 70551; 71045; 74018; 70450; 93010; 94640; J3490 ×4; J2405; J7620

== ENCOUNTER 2019-04-26 13:53 | Emergency (ER) | payer BC, MEDICARE ==
--- NOTE | 2019-04-26 14:00 | ER Document Report ---
ED General - General Chief Complaint: Respiratory Distress Stated Complaint: RESPIRATORY DISTRESS Time Seen by Provider: 04/26/19 13:57 Notes: 59-year-old lady with COPD presents with shortness of breath onset at [facility] this morning did not bring her rescue inhaler, found wheezing for EMS. Was getting tired and said "am not blowing up my CO2" her end-tidal was 75 and her sat was 75-isaiah. She was placed on nonrebreather and given 3 back to back nebs Solu-Medrol and 2 g of magnesium. On arrival to the ED she said she still short of breath but is slightly better. Positive cough recently worse than usual with phlegm, no fevers positive flu shot. Anterior chest pain nonradiating only since this morning. Also says she takes a water pill and may have CHF. TRAVEL OUTSIDE OF THE [place] IN LAST 30 DAYS: No - Related Data Allergies/Adverse Reactions: levofloxacin [From Levaquin] Adverse Reaction (Verified 06/24/15 11:57) redness to face Past Medical History - Social History Smoking Status: Former Smoker Family History: Reviewed & Not Pertinent - Past Medical History Cardiac Medical History: Reports: Hx Congestive Heart Failure, Hx Coronary Artery Disease, Hx Hypertension Pulmonary Medical History: Reports: Hx Asthma, Hx COPD Neurological Medical History: Reports: Hx Cerebrovascular Accident Renal/ Medical History: Denies: Hx Peritoneal Dialysis GI Medical History: Reports: Hx Gastroesophageal Reflux Disease Musculoskeletal Medical History: Reports Hx Fibromyalgia Psychiatric Medical History: Reports: Hx Depression Past Surgical History: Reports: Hx Adenoidectomy, Hx Hysterectomy, Hx Tonsillectomy, Hx Vascular Surgery - Right-sided carotid endarterectomy - Immunizations Hx Pneumococcal Vaccination: 03/30/11 Review of Systems - Review of Systems Notes: REVIEW OF SYSTEMS GEN: Denies fever, chills, weight loss ENT: Denies sore throat, nasal discharge, ear pain EYES: Denies blurry vision, eye pain, discharge CV: See HPI RESP: See HPI GI: Denies abdominal pain, nausea, vomiting, diarrhea MSK: Denies joint pain/swelling, edema, SKIN: Denies rash, skin lesions LYMPH: Denies swollen glands/lymph nodes NEURO: Denies headache, focal weakness or numbness, dizziness PSYCH: Denies depression, suicidal or homicidal ideation PHYSICAL EXAMINATION General: Alert respiratory distress looks ill Head: Atraumatic, normocephalic ENT: Mouth normal, oropharynx moist, no exudates or tonsillar enlargement Eyes: Conjunctiva normal, pupils equal, lids normal Neck: No JVD, supple, no guarding CVS: Tachycardic Resp: Tachypnea, audible expiratory wheezing bilaterally, equal, prolonged expiratory phase, accessory muscle use GI: Nondistended, soft, no tenderness to palpation, no rebound or guarding Ext: No deformities, no edema, normal range of motion in upper and lower ext Back: No CVA or midline TTP Skin: No rash, warm Lymphatic: No lymphadeopathy noted Neuro: Awake, alert. Face symmetric. GCS 15. Physical Exam - Vital signs Vitals: Resp Pulse Ox 19 99 04/26/19 14:03 04/26/19 14:03 Course - Re-evaluation Re-evalutation: 04/26/19 15:44 Presents with hypoxic and hypercarbic respiratory failure likely secondary to COPD Also has blood clots on anticoagulation with no signs of acute PE or right heart failure Patient placed on BiPAP. Gas before BiPAP showed hypercarbia X-ray ruled out pneumonia labs otherwise normal. Reassessed on BiPAP: Feeling much better able to carry on a conversation about 330. Patient has misgivings about [facility] does not will be admitted here but I commits her to spend the night and discussed with hospitalist Hospitalist came to me that the patient did not want to stay. 340 I assessed the patient. I removed the BiPAP. She speaking in nearcomplete sentences, is awake and alert, her values are clear and she does not want to stay. We had a long discussion regarding the risks and benefits, including permanent vegetative state respiratory failure, of leaving the hospital and she will be leaving. She will be going to another ED. I was unable to print discharge instructions to her based on the computer we did discuss return precautions and advised her to return to the ER at any point. Will be driven by her . - Vital Signs Vital signs: Temp Pulse Resp BP Pulse Ox 98.9 F 20 145/90 H 94 04/26/19 14:21 04/26/19 14:21 04/26/19 14:21 04/26/19 14:23 - Laboratory Result Diagrams: 04/26/19 14:01 04/26/19 14:01 Laboratory results interpreted by me: 04/26/19 04/26/1920 14:01 14:01 14:01 RDW 14.8 H Eos % (Auto) 7.0 H Carbonic Acid ABG pH ABG pCO2 ABG pO2 ABG HCO3 ABG Total CO2 ABG O2 Saturation Carbon Dioxide 33 H NT-Pro-B Natriuret Pep 219 H 04/26/19 14:01 RDW Eos % (Auto) Carbonic Acid 2.80 H ABG pH 7.16 L* ABG pCO2 93.1 H* ABG pO2 206.8 H ABG HCO3 32.6 H ABG Total CO2 35.4 H ABG O2 Saturation 99.0 H Carbon Dioxide NT-Pro-B Natriuret Pep Critical Care Note - Critical Care Note Total time excluding time spent on procedures (mins): 70 Comments: The above patient is critically ill. Not including procedures, but including direct re-evaluations, speaking with patient and/or consultants, interpreting results, and documenting, I spent the total amount of minute listed listed above on critical care time Discharge - Discharge Clinical Impression: COPD exacerbation Respiratory failure Qualifiers: Chronicity: acute Respiratory failure complication: hypoxia and hypercapnia Qualified Code(s): J96.01 - Acute respiratory failure with hypoxia Condition: Fair Disposition: AGAINST MEDICAL ADVICE Admitting Provider: Annette (Hospitalist) Unit Admitted: [facility]
[2019-04-26] MEDS: ALBUTEROL SULFATE 0.083% NEB 2.5 MG/3 ML AMPUL NEB SCH ×2 (14:09→14:10)
[2019-04-26 14:17] LABS: ABSOLUTE BASOPHILS # (AUTO) 0.1 10^3/uL (0.0-0.2); ABSOLUTE EOSINOPHILS # (AUTO) 0.6 10^3/uL (0.0-0.6); ABSOLUTE LYMPHOCYTES (AUTO) 2.7 10^3/uL (0.5-4.7); ABSOLUTE MONOCYTES (AUTO) 0.7 10^3/uL (0.1-1.4); ABSOLUTE NEUT (AUTO) 4.7 10^3/uL (1.7-8.2); BASOPHILS % (AUTO) 1.1 % (0-2); HEMATOCRIT 43.6 % (36.0-47.0); HEMOGLOBIN 14.5 g/dL (12.0-15.5); LYMPHOCYTES % (AUTO) 30.2 % (13-45); MEAN CORPUSCULAR HEMOGLOBIN 29.6 pg (27.0-33.4); MEAN CORPUSCULAR HGB CONC 33.2 g/dL (32.0-36.0); MEAN CORPUSCULAR VOLUME 89 fl (80-97); MONOCYTES % (AUTO) 8.1 % (3-13); PLATELET COUNT 192 10^3/uL (150-450); RED CELL DISTRIBUTION WIDTH 14.8 % (11.5-14.0); SEGMENTED NEUTROPHILS % (AUTO) 53.6 % (42-78); TOTAL CELLS COUNTED % (AUTO) 100 %; WHITE BLOOD COUNT 8.8 10^3/uL (4.0-10.5)
[2019-04-26 14:20] LABS: ARTERIAL BLOOD BASE EXCESS 0.7 mmol/L; ARTERIAL BLOOD HCO3 32.6 mmol/L (20-24); ARTERIAL BLOOD PO2 206.8 mmHg (80-100); ARTERIAL BLOOD TOTAL CO2 35.4 mmol/L (21-25)
[2019-04-26 14:21] LABS: ARTERIAL BLOOD PCO2 93.1 mmHg (35-45)
[2019-04-26 14:22] LABS: ARTERIAL BLOOD PH 7.16 (7.35-7.45)
[2019-04-26 14:35] LABS: ANION GAP 6 (5-19); BLOOD UREA NITROGEN 13 mg/dL (7-20); CALCIUM 9.6 mg/dL (8.4-10.2); CARBON DIOXIDE 33 mmol/L (22-30); CHLORIDE 101 mmol/L (98-107); GLUCOSE 98 mg/dL (75-110); POTASSIUM 4.9 mmol/L (3.6-5.0)
[2019-04-26 14:42] LABS: A TYPE INFLUENZA AG NEGATIVE (NEGATIVE); B INFLUENZA AG NEGATIVE (NEGATIVE)
[2019-04-26 14:46] LABS: NT PRO BNP 219 pg/mL (<125)
[2019-04-26 14:47] LABS: TROPONIN I < 0.012 ng/mL
[2019-04-26 14:51] LABS: ARTERIAL BLOOD FIO2 7L
--- NOTE | 2019-04-26 15:01 | RADIOLOGY REPORT (SQ) ---
EXAM DESCRIPTION: CHEST SINGLE VIEW COMPLETED DATE/TIME: 04/26/2019 2:40 pm REASON FOR STUDY: sob copd COMPARISON: [id number] EXAM PARAMETERS: NUMBER OF VIEWS: One view. TECHNIQUE: Single frontal radiographic view of the chest acquired. RADIATION DOSE: NA LIMITATIONS: None. FINDINGS: LUNGS AND PLEURA: Subsegmental airspace disease left lower lobe. Flattened hemidiaphragms . MEDIASTINUM AND HILAR STRUCTURES: No masses. Contour normal. HEART AND VASCULAR STRUCTURES: Heart normal in size. Normal vasculature. BONES: No acute findings. HARDWARE: None in the chest. OTHER: No other significant finding. IMPRESSION: Atelectasis or early pneumonia left lower lobe. TECHNICAL DOCUMENTATION: JOB ID: [id number] [employer]- All Rights Reserved Reading location - IP/workstation name: [email or web address]
[2019-04-26 15:48] VITALS: BP 133/83
--- NOTE | 2019-04-27 14:27 | EKG REPORT ---
SEVERITY:- NORMAL ECG - SINUS RHYTHM : Confirmed by: Isabela Stein 27-Apr-2019 14:25:01
== END 2019-04-26 16:00 | disposition left against medical advice (07) ==
LOC: ER 13:53 → EH 15:39 → UNDOADMIN 15:39 → UNDODISIN 16:46
DX: J44.1 Chronic obstructive pulmonary disease with (acute) exacerbation (principal); J96.01 Acute respiratory failure with hypoxia; R07.9 Chest pain, unspecified; R00.0 Tachycardia, unspecified; I50.9 Heart failure, unspecified; I25.10 Atherosclerotic heart disease of native coronary artery without angina pectoris; I11.0 Hypertensive heart disease with heart failure; Z86.73 Personal history of transient ischemic attack (TIA), and cerebral infarction without residual deficits; Z88.3 Allergy status to other anti-infective agents; Z90.710 Acquired absence of both cervix and uterus
CPT/HCPCS: 36415; 71045; 80048; 82803; 83880; 84484; 85025; 87804; 93005; 93010; 94660; 99291